=== PATIENT | male | born 1955 | race Caucasian/White ===

== ENCOUNTER → 2019-01-27 08:46 | Outpatient (CLI) | payer OTHER, SELFPAY ==
--- NOTE | 2019-01-27 08:49 | DI.RAD.S_ITS ---
PROCEDURE: XR PELVIS 1-2V INDICATIONS: history of hip dispalcement TECHNIQUE: Single frontal view of the pelvis acquired. COMPARISON: None. FINDINGS: Bones: No fractures or dislocations. No suspicious bony lesions. Soft tissues: Visualized bowel gas pattern is normal. No suspicious soft tissue calcifications. IMPRESSION: Only a mild degree of symmetric hip joint osteoarthritis is identified and no trauma is found. Dictated by: Michael Anna M.D. on 01/27/2019 at 11:15 Approved by: Michael Anna M.D. on 01/27/2019 at 11:16
[2019-01-27 09:39] LABS: Add Manual Diff / Slide Review NO; Basophils Absolute Auto 100 /uL (0-100); Basophils Percent Auto 0.7 % (0-2); Eosinophils Absolute Auto 200 /uL (0-450); Eosinophils Percent Auto 1.7 % (2-4); Hematocrit 47.1 % (41-53); Hemoglobin 16.5 g/dL (13.5-17.5); Lymphocytes Absolute Auto 1900 /uL (1100-4500); Lymphocytes Percent Auto 19.7 % (25-40); Mean Corpuscular Hemoglobin 31.7 PG (26-34); Mean Corpuscular Volume 90.8 fL (80-100); Monocytes Absolute Auto 900 /uL (0-900); Monocytes Percent Auto 9.4 % (3-14); Neutrophils Absolute Auto 6700 /uL (1500-7000); Neutrophils Percent Auto 68.5 % (50-75); Platelet Count 293 X10^3/uL (150-400); Red Blood Cell Count 5.19 X10^6/uL (4.5-5.9); Red Cell Distribution Width 13.6 % (11.6-14.8); White Blood Cell Count 9.8 X10^3/uL (4.5-11.0)
[2019-01-27 09:59] LABS: Alanine Aminotransferase 35 IU/L (21-72); Albumin 4.5 g/dL (3.5-5.0); Albumin Globulin Ratio 1.6 (1.0-2.8); Alkaline Phosphatase 105 U/L (38-126); Aspartate Aminotransferase 30 IU/L (17-59); BUN Creatinine Ratio 17.5 (6-22); Bilirubin Total 0.7 mg/dL (0.2-1.3); Blood Urea Nitrogen 14 mg/dL (9-20); Calcium 9.3 mg/dL (8.4-10.2); Carbon Dioxide 30 mmol/L (22-32); Chloride 97 mmol/L (98-107); Cholesterol 203 mg/dL (140-199); Estimated Glomerular Filt Rate > 60.0 mL/min (>60); Globulin 2.9 g/dL (1.7-4.1); Glucose 91 mg/dL (80-110); HDL Cholesterol 61 mg/dL (40-60); HEMOLYSIS < 15 (0-50); LDL Cholesterol Calculated 118 mg/dL (<100); Potassium 4.7 mmol/L (3.4-5.1); Sodium 136 mmol/L (137-145); Total Protein 7.4 g/dL (6.3-8.2); Triglycerides 122 mg/dL (35-150)
[2019-01-27 10:35] LABS: Thyroid Stimulating Hormone 2.63 uIU/mL (0.47-4.68)
== END ==
PROVIDERS: Visit Provider Nurse Practitioner
DX: Q65.2 Congenital dislocation of hip, unspecified (principal); Z13.220 Encounter for screening for lipoid disorders; Z13.29 Encounter for screening for other suspected endocrine disorder
CPT/HCPCS: 36415; 72170; 80053; 80061; 84443; 85025

== ENCOUNTER → 2019-04-28 09:14 | Outpatient (CLI) | payer OTHER, SELFPAY ==
--- NOTE | 2019-04-28 09:17 | DI.CT.S_ITS ---
PROCEDURE: CT HEAD/BRAIN WO/W CON INDICATIONS: numb hands, visual disturbances, dizzy, lack of balance TECHNIQUE: 4.5 mm thick angled axial sections acquired from the foramen magnum to the vertex both before and after the administration of intravenous contrast, with coronal and sagittal reformats. For radiation dose reduction, the following was used: automated exposure control, adjustment of mA and/or kV according to patient size. COMPARISON: None. FINDINGS: Image quality: Excellent. CSF spaces: Basal cisterns are patent. No extra-axial fluid collections. Ventricles are symmetric in size and shape. Brain: No midline shift. No intracranial bleeds or masses. No abnormal intracranial enhancement. There is cerebral volume loss for age. There is periventricular white matter chronic small vessel ischemic change. There is intracranial internal carotid artery atherosclerosis. Skull and face: Calvarium and visualized facial bones appear intact, without suspicious lesions. Sinuses: Visualized sinuses and mastoids are clear. IMPRESSION: No acute intracranial process is seen. No masses or abnormal enhancement can be seen. Dictated by: Reji Ortiz M.D. on 04/28/2019 at 9:41 Approved by: Reji Ortiz M.D. on 04/28/2019 at 9:42
[2019-04-28 09:51] LABS: BUN Creatinine Ratio 16.3 (6-22); Blood Urea Nitrogen 13 mg/dL (9-20); Estimated Glomerular Filt Rate > 60.0 mL/min (>60)
== END ==
PROVIDERS: Visit Provider Nurse Practitioner
DX: H53.9 Unspecified visual disturbance (principal); R20.0 Anesthesia of skin; Z87.820 Personal history of traumatic brain injury; Z01.812 Encounter for preprocedural laboratory examination; R42 Dizziness and giddiness
CPT/HCPCS: 36415; 70470; 82565; 84520; Q9967

== ENCOUNTER → 2019-05-05 09:44 | Outpatient (CLI) | payer OTHER, SELFPAY ==
--- NOTE | 2019-05-05 09:46 | DI.MRI.S_ITS ---
PROCEDURE: MR CERVICAL SPINE WO CON INDICATIONS: left foot drop, arms tingling TECHNIQUE: Noncontrast sagittal T1 spin echo and T2 fast spin echo, sagittal STIR, foraminal oblique sagittal T2 fast spin echo, and axial gradient echo or T2 fast spin echo through the cervical spine. COMPARISON: [facility], CT, CT HEAD/BRAIN WO/W CON, 04/28/2019, 10:09. FINDINGS: Image quality: Excellent. Alignment and Curvature: There is normal bony alignment. Bone Marrow: Marrow demonstrates normal overall signal. Spinal Cord: Mildly increased degenerative signal can be seen within the cervical spine at the C4-C5 level, which is best seen on series 5 image 10. Visualized spinal cord has normal size. No cerebellar tonsillar herniation. Paraspinous Soft Tissues: No paravertebral masses. Prevertebral soft tissues are normal in thickness. C2-C3: A mild degree of generalized disc osteophyte complex is seen. A mild degree of generalized disc osteophyte complex is seen. There is mild to moderate left-sided and no right-sided neural foraminal narrowing seen. No significant central canal narrowing is seen. C3-C4: Moderate loss of disc height is seen. Loss of disc signal is seen. Moderate disc osteophyte complex is seen, which is eccentric to the right. There is mild to moderate facet hypertrophy seen. Moderate to severe bilateral neural foraminal narrowing is seen at this level. Moderate central canal narrowing is seen. C4-C5: Moderate loss of disc height is seen. Loss of disc signal is seen. Moderate to prominent disc osteophyte complex is seen, with a central disc osteophyte protrusion. There is moderate right-sided and mild left-sided facet hypertrophy seen. There is moderate to severe bilateral neural foraminal narrowing seen, right worse than left. At least moderate central canal narrowing is seen, with mass effect upon the ventral spinal cord. C5-C6: The disc height is well-preserved. Loss of disc signal is seen at this level. Mild to moderate disc osteophyte complex is seen, which is eccentric to the right. There is mild to moderate right-sided facet hypertrophy seen. There is moderate bilateral neural foraminal narrowing seen at this level. Moderate central canal narrowing is seen, with minimal mass effect upon the ventral spinal cord. C6-C7: The disc height is well-preserved. Loss of disc signal is seen at this level. Moderate generalized disc osteophyte complex is seen. There is at least moderate bilateral neural foraminal narrowing seen, right worse than left. Moderate central canal narrowing is seen, with mild associated mass effect upon the ventral spinal cord. C7-T1: The disc height is well-preserved. Loss of disc signal is seen at this level. A mild degree of generalized disc osteophyte complex is seen. Moderate to severe bilateral neural foraminal narrowing is seen, right worse than left. Mild central canal narrowing is seen. IMPRESSION: Multiple levels of cervical spine degenerative change are seen, which are most prominent at the C4-C5 level. At this level, there is moderate to severe central canal narrowing, with associated increased abnormal T2-weighted signal within the spinal cord itself. 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 Dictated by: Reji Ortiz M.D. on 05/05/2019 at 11:53 Approved by: Reji Ortiz M.D. on 05/05/2019 at 12:01
== END ==
PROVIDERS: PCP Nurse Practitioner; Visit Provider Nurse Practitioner
DX: M21.372 Foot drop, left foot (principal); R20.2 Paresthesia of skin; M47.12 Other spondylosis with myelopathy, cervical region; M48.02 Spinal stenosis, cervical region; M79.601 Pain in right arm; M79.602 Pain in left arm
CPT/HCPCS: 72141

== ENCOUNTER → 2019-10-14 10:21 | Outpatient (CLI) | payer OTHER, SELFPAY ==
[2019-10-14 11:39] LABS: Alanine Aminotransferase 38 IU/L (<50); Albumin 4.8 g/dL (3.5-5.0); Albumin Globulin Ratio 1.7 (1.0-2.8); Alkaline Phosphatase 100 U/L (38-126); Aspartate Aminotransferase 35 IU/L (17-59); Bilirubin Total 0.5 mg/dL (0.2-1.3); Bilirubin Unconjugated 0.4 mg/dL (0.0-1.1); Cholesterol 202 mg/dL (140-199); Globulin 2.8 g/dL (1.7-4.1); HDL Cholesterol 80 mg/dL (40-60); HEMOLYSIS < 15 (0-50); LDL Cholesterol Calculated 106 mg/dL (<100); Total Protein 7.6 g/dL (6.3-8.2); Triglycerides 82 mg/dL (35-150)
== END ==
PROVIDERS: PCP Nurse Practitioner; Referring Provider Nurse Practitioner; Visit Provider Nurse Practitioner
DX: E78.00 Pure hypercholesterolemia, unspecified (principal)
CPT/HCPCS: 36415; 80061; 80076

== ENCOUNTER → 2020-08-09 10:24 | Outpatient (CLI) | payer OTHER, SELFPAY ==
[2020-08-09 11:29] LABS: Add Manual Diff / Slide Review NO; Basophils Absolute Auto 100 /uL (0-100); Basophils Percent Auto 0.8 % (0-2); Eosinophils Absolute Auto 100 /uL (0-450); Eosinophils Percent Auto 0.6 % (2-4); Hematocrit 44.8 % (41-53); Hemoglobin 15.5 g/dL (13.5-17.5); Lymphocytes Absolute Auto 1800 /uL (1100-4500); Lymphocytes Percent Auto 18.1 % (25-40); Mean Corpuscular HGB Conc 34.5 % (30-36); Mean Corpuscular Volume 89.7 fL (80-100); Monocytes Absolute Auto 800 /uL (0-900); Monocytes Percent Auto 8.5 % (3-14); Neutrophils Absolute Auto 7000 /uL (1500-7000); Platelet Count 338 X10^3/uL (150-400); Red Blood Cell Count 4.99 X10^6/uL (4.5-5.9); Red Cell Distribution Width 13.6 % (11.6-14.8); White Blood Cell Count 9.7 X10^3/uL (4.5-11.0)
[2020-08-09 11:48] LABS: Alanine Aminotransferase 24 IU/L (<50); Albumin 4.5 g/dL (3.5-5.0); Albumin Globulin Ratio 1.7 (1.0-2.8); Alkaline Phosphatase 90 U/L (38-126); Aspartate Aminotransferase 29 IU/L (17-59); BUN Creatinine Ratio 19.1 (6-22); Bilirubin Total 0.9 mg/dL (0.2-1.3); Blood Urea Nitrogen 13 mg/dL (9-20); Calcium 9.8 mg/dL (8.4-10.2); Carbon Dioxide 29 mmol/L (22-32); Chloride 90 mmol/L (98-107); Cholesterol 171 mg/dL (140-199); Estimated Glomerular Filt Rate > 60.0 mL/min (>60); Globulin 2.7 g/dL (1.7-4.1); Glucose 104 mg/dL (80-110); HDL Cholesterol 83 mg/dL (40-60); HEMOLYSIS < 15 (0-50); LDL Cholesterol Calculated 76 mg/dL (<100); Potassium 3.9 mmol/L (3.4-5.1); Sodium 127 mmol/L (137-145); Total Protein 7.2 g/dL (6.3-8.2); Triglycerides 62 mg/dL (35-150)
[2020-08-09 12:04] LABS: Free T3, Triiodothyronine Free 4.03 pg/mL (2.77-5.27); Free T4, Direct Thyroxine 1.57 ng/dL (0.78-2.19)
[2020-08-09 12:17] LABS: Thyroid Stimulating Hormone 1.68 uIU/mL (0.47-4.68)
[2020-08-09 12:23] LABS: Prostate Specific Antigen 1.08 ng/mL (0.10-4.00)
[2020-08-10 16:58] LABS: Hep C Virus Ab w/Reflex Quant NEGATIVE s/c (NEGATIVE)
== END ==
PROVIDERS: PCP Nurse Practitioner; Referring Provider Nurse Practitioner; Visit Provider Nurse Practitioner
DX: Z00.00 Encounter for general adult medical examination without abnormal findings (principal); I10 Essential (primary) hypertension; Z12.5 Encounter for screening for malignant neoplasm of prostate; Z79.899 Other long term (current) drug therapy; Z11.59 Encounter for screening for other viral diseases; Z91.89 Other specified personal risk factors, not elsewhere classified
CPT/HCPCS: 36415; 80053; 80061; 84153; 84439; 84443; 84481; 85025; 86803

== ENCOUNTER → 2020-08-30 10:48 | Outpatient (CLI) | payer OTHER, SELFPAY ==
--- NOTE | 2020-08-30 10:50 | DI.RAD.S_ITS ---
P is ROCEDURE: XR LUMBAR SPINE 2-3V INDICATIONS: low back pain TECHNIQUE: 3 views of the lumbar spine were acquired. COMPARISON: None. FINDINGS: Bones: No fracture. Multilevel degenerative endplate sclerosis and spurring. Diffuse facet arthropathy. Grade 1 retrolisthesis of L1 on L2, L2 on L3 , and L4 on L5. Grade 1 anterolisthesis of L3 on L4. Moderate narrowing of the lumbar spaces diffusely, although severe disc space narrowing at L5-S1. Mild dextrocurvature Soft tissues: Overlying bowel gas pattern is normal. No suspicious soft tissue calcifications. IMPRESSION: Mild dextrocurvature Multilevel lumbar spondylosis and facet arthropathy as above Multilevel spondylolisthesis as above. Dictated by: Jono Maxwell M.D. on 08/30/2020 at 14:20 Approved by: Jono Maxwell M.D. on 08/30/2020 at 14:22
[2020-08-30 14:19] LABS: BUN Creatinine Ratio 24.2 (6-22); Blood Urea Nitrogen 16 mg/dL (9-20); Calcium 9.2 mg/dL (8.4-10.2); Carbon Dioxide 30 mmol/L (22-32); Chloride 92 mmol/L (98-107); Estimated Glomerular Filt Rate > 60.0 mL/min (>60); Glucose 83 mg/dL (80-110); HEMOLYSIS < 15 (0-50); Magnesium 2.1 mg/dL (1.6-2.3); Potassium 4.5 mmol/L (3.4-5.1); Sodium 127 mmol/L (137-145)
== END ==
PROVIDERS: PCP Nurse Practitioner; Referring Provider Nurse Practitioner; Visit Provider Nurse Practitioner
DX: G89.29 Other chronic pain (principal); M25.552 Pain in left hip; M51.36 Other intervertebral disc degeneration, lumbar region; E87.1 Hypo-osmolality and hyponatremia; I10 Essential (primary) hypertension; Z79.899 Other long term (current) drug therapy
CPT/HCPCS: 36415; 72100; 80048; 83735

== ENCOUNTER → 2020-09-27 11:37 | Outpatient (CLI) | payer OTHER, SELFPAY ==
--- NOTE | 2020-09-27 11:41 | DI.MRI.S_ITS ---
PROCEDURE: MR LUMBAR SPINE WO CON INDICATIONS: Lower extremity weakness TECHNIQUE: Noncontrast sagittal T1 spin echo and T2 fast echo, sagittal STIR, axial T1 and T2 fast spin echo through the lumbar spine. In cases with scoliosis, additional coronal T2 fast spin echo may be performed. COMPARISON: [facility], CR, XR CERVICAL SPINE 4V OR 5V, 09/27/2020, 12:50. [facility], MR, MR CERVICAL SPINE WO CON, 09/27/2020, 12:03. [facility], CR, XR LUMBAR SPINE 2-3V, 08/30/2020, 11:13. FINDINGS: Image quality: This examination is limited by involuntary motion artifact. Alignment and Curvature: Mild dextroconvex scoliotic curvature is noted. There is minimal retrolisthesis seen at L1-L2, L2-L3, and L4-L5. Minimal anterolisthesis is seen at L5-S1. Bone Marrow: Marrow is of normal overall signal. No acute vertebral body compression fractures. Spinal Cord: Conus medullaris terminates at the T12 level. Visualized cord demonstrates normal signal and size. Paraspinous Soft Tissues: No paravertebral masses. T12-L1: Normal appearance. L1-L2: Mild loss of disc height is seen. Loss of disc signal is seen. Mild to moderate facet hypertrophy is seen at this level. There is [id number] right-sided and moderate left-sided neural foraminal narrowing seen. No pneumothorax or pleural effusions are seen. The central airways are patent. L2-L3: Loss of disc signal is seen. Minimal to mild loss of disc height is seen at this level. Moderate disc bulge is seen, which is eccentric to the left. At least moderate facet hypertrophy can be seen at this level. Moderate to severe bilateral neural foraminal narrowing is seen, left worse than right. There is a degree of compression seen upon the exiting nerve roots. At least moderate central canal narrowing is seen, as on series 5, image 15. L3-L4: Moderate to severe loss of disc height and disc signal can be seen. 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 Moderate generalized disc bulge is seen. Mild facet joint hypertrophy is seen. Moderate bilateral neural foraminal narrowing is seen. Mild central canal narrowing is seen. L4-L5: Moderate loss of disc height is seen. Loss of disc signal is seen. Reactive marrow endplate changes are seen which are hypointense on T1-weighted imaging and hyperintense on T2 weighted imaging, which is most consistent with edema (Modic type I changes). Moderate disc bulge is seen, which is eccentric to the right. There is a central disc protrusion seen. There is also a right lateral recess disc extrusion seen. At least moderate facet hypertrophy can be seen at this level. There is moderate to severe bilateral neural foraminal narrowing seen, right worse than left. A degree of compression can be seen upon the exiting nerve roots, right worse than left. Moderate to severe central canal narrowing is seen. L5-S1: At least moderate loss of disc height and disc signal can be seen. Reactive marrow endplate changes are seen, which demonstrate mixed T1 weighted and T2-weighted signal, and are attributed to a combination of edema and fatty metaplasia (Modic type I and Modic type II changes). At least moderate disc bulge is seen. There is a central/right disc extrusion, with superior migration of the disc material. Moderate to prominent facet hypertrophy can be seen at this level. Moderate to severe bilateral neural foraminal narrowing can be seen, right worse than left. There is a degree of compression seen upon the exiting nerve roots. Moderate to severe central canal narrowing is seen. IMPRESSION: Multiple levels of lumbar spine degenerative change are seen, which are most prominent inferiorly. Right-sided disc extrusions are seen at the L4-L5 and L5-S1 levels. Moderate to severe bilateral neural foraminal narrowing can be seen at L4-L5 and L5-S1, with associated exiting nerve root compression. Dictated by: Reji Ortiz M.D. on 09/27/2020 at 12:28 Approved by: Reji Ortiz M.D. on 09/27/2020 at 12:34
--- NOTE | 2020-09-27 11:41 | DI.MRI.S_ITS ---
PROCEDURE: MR CERVICAL SPINE WO CON INDICATIONS: Cervical myeloradiculopathy TECHNIQUE: Noncontrast sagittal T1 spin echo and T2 fast spin echo, sagittal STIR, foraminal oblique sagittal T2 fast spin echo, and axial gradient echo or T2 fast spin echo through the cervical spine. COMPARISON: [facility], MR, MR CERVICAL SPINE WO CON, 05/05/2019, 10:32. [facility], CR, XR CERVICAL SPINE 4V OR 5V, 09/27/2020, 12:50. [facility], MR, MR LUMBAR SPINE WO CON, 09/27/2020, 12:31. FINDINGS: Image quality: This examination is limited by involuntary motion artifact. Alignment and Curvature: There is normal bony alignment. Bone Marrow: Marrow demonstrates normal overall signal. Spinal Cord: Visualized spinal cord has normal size and signal. No cerebellar tonsillar herniation. Paraspinous Soft Tissues: No paravertebral masses. Prevertebral soft tissues are normal in thickness. C2-C3: Mild loss of disc height is seen. Loss of disc signal is seen. Mild to moderate disc osteophyte complex is seen. There is mild right-sided and at least moderate left-sided facet hypertrophy seen. There is at least moderate left-sided and no significant right-sided neural foraminal narrowing seen. No significant central canal narrowing is seen. No significant change from the prior. C3-C4: Moderate loss of disc height is seen. Loss of disc signal is seen. Moderate disc osteophyte complex is seen, which is eccentric to the right. At least moderate facet hypertrophy is seen at this level. There is moderate to severe bilateral neural foraminal narrowing seen. Moderate central canal narrowing is seen. Stable from the prior study. C4-C5: Interval postoperative changes are seen anteriorly, with anterior fusion plate with a disc spacer. Mild to moderate disc osteophyte complex is seen. Moderate facet hypertrophy is seen, right worse than left. There is moderate to severe bilateral neural foraminal narrowing seen, right worse than left. Mild central canal narrowing is seen. The degree of central canal narrowing is improved compared to the prior, preoperative MRI examination. C5-C6: The disc height is well-preserved. Loss of disc signal is seen at this level. Mild to moderate disc osteophyte complex is seen. At least moderate facet hypertrophy is seen, right worse than left. There is at least moderate bilateral neural foraminal narrowing seen. Moderate central canal narrowing is seen. There is associated mass effect upon the ventral spinal cord. When comparison is made with the prior examination, these findings are similar. C6-C7: The disc height is well-preserved. Loss of disc signal is seen at this level. Mild to moderate disc osteophyte complex is seen. There is [id number] right-sided and mild left-sided facet hypertrophy seen. There is at least moderate bilateral neural foraminal narrowing seen, right worse than left. Moderate central canal narrowing can be seen at this level. There is minimal associated mass effect upon the ventral spinal cord. No significant change from the prior. C7-T1: The disc height is well-preserved. Loss of disc signal is seen at this level. Mild to moderate disc osteophyte complex is seen. Mild facet joint hypertrophy is seen. At least moderate bilateral neural foraminal narrowing can be seen. Mild central canal narrowing is seen. Stable from the prior study. IMPRESSION: Interval postoperative change at the C3-C4 level, with improvement in the degree of central canal narrowing at this level. A a Dictated by: Reji Ortiz M.D. on 09/27/2020 at 12:22 Approved by: Reji Ortiz M.D. on 09/27/2020 at 12:27
--- NOTE | 2020-09-27 11:41 | DI.RAD.S_ITS ---
PROCEDURE: XR CERVICAL SPINE 4V OR 5V INDICATIONS: Cervical myeloradiculopathy TECHNIQUE: 5 views of the cervical spine were acquired. COMPARISON: [facility], MR, MR CERVICAL SPINE WO CON, 09/27/2020, 12:03. FINDINGS: Bones: No fractures or dislocations to the T1 level. No suspicious bony lesions. Prior ACDF C4-C5 with fixation plate, screws and intervertebral disc spacer in expected unchanged positions. Grade 1 retrolisthesis C3-C4 where there is moderate disc degeneration. Oblique views demonstrating mild multilevel mid and lower cervical spine bilateral neural foraminal narrowing. Soft tissues: Prevertebral soft tissues are normal in thickness. IMPRESSION: 1. Prior ACDF C4-C5. 2. Multilevel spondylosis. Dictated by: Indra HINSON Interpreted: Teofilo Valera MD on 09/27/2020 at 13:05 Approved by: Teofilo Valera M.D. on 09/27/2020 at 14:32
== END ==
PROVIDERS: PCP Nurse Practitioner; Referring Provider Physical Medicine & Rehabilitation; Visit Provider Physical Medicine & Rehabilitation
DX: M47.26 Other spondylosis with radiculopathy, lumbar region (principal); M51.16 Intervertebral disc disorders with radiculopathy, lumbar region; M51.17 Intervertebral disc disorders with radiculopathy, lumbosacral region; M48.061 Spinal stenosis, lumbar region without neurogenic claudication; M48.07 Spinal stenosis, lumbosacral region; M54.12 Radiculopathy, cervical region; M48.02 Spinal stenosis, cervical region; G99.2 Myelopathy in diseases classified elsewhere; R29.898 Other symptoms and signs involving the musculoskeletal system; G95.9 Disease of spinal cord, unspecified; R26.81 Unsteadiness on feet; Z98.1 Arthrodesis status
CPT/HCPCS: 72110; 72141; 72148

== ENCOUNTER → 2020-10-17 12:34 | Outpatient (CLI) | payer OTHER, SELFPAY ==
[2020-10-17 14:56] LABS: COVID19 -Nasal RAPID Negative (Negative)
== END ==
PROVIDERS: PCP Nurse Practitioner; Visit Provider Physical Medicine & Rehabilitation
DX: Z20.822 Contact with and (suspected) exposure to COVID-19 (principal)
CPT/HCPCS: 87635; C9803

== ENCOUNTER 2020-10-19 09:06 | Outpatient (CLI) | payer OTHER, SELFPAY ==
[2020-10-19] VITALS (7 sets, daily range): BP systolic 133–166; BP diastolic 63–76; PULSE 72–77; RESP 13–19; O2SAT 93–98
--- NOTE | 2020-10-19 09:07 | DI.RAD.S_ITS ---
PROCEDURE: PAIN L INTERLAMINAR/CAUDAL INJ INDICATIONS: SPONDYLOSIS COMPARISON: [facility], CR, XR LUMBAR SPINE 2-3V, 08/30/2020, 11:13. [facility], MR, MR LUMBAR SPINE WO CON, 09/27/2020, 12:31. FINDINGS: Fluoroscopic spot filming was performed to verify placement of a spinal needle at the L4-L5 level, as labeled on the films. Appropriate location of the needle tip was confirmed by injection of iodinated contrast. IMPRESSION: Intraprocedural examination within normal limits. Dictated by: Reji Ortiz M.D. on 10/19/2020 at 12:27 Approved by: Reji Ortiz M.D. on 10/19/2020 at 12:28
[2020-10-19] MEDS: MIDAZOLAM 5 MG/5 ML VIAL IV (09:40)
[2020-10-19] MEDS: fentaNYL 100 MCG/2 ML INJ 50 MCG IV (09:40)
[2020-10-19] MEDS: IOPAMIDOL 15 ML VIAL 3 ML INJ (09:46)
[2020-10-19] MEDS: DEXAMETHASONE 10 MG/ML VIAL 20 MG INJ (09:47)
[2020-10-19] MEDS: BUPIVACAINE 0.25% (PF) VIAL 2 ML INJ (09:47)
[2020-10-19] MEDS: BETAMETHASONE 30 MG/5 ML MDV 6 MG INJ (09:47)
--- NOTE | 2020-10-19 09:52 | P.PCN_ITS ---
Date/Time/Diagnoses Date of procedure: 10/19/20 Time of procedure: 09:52 Pre-procedure diagnosis: 1. HNP WITH RADICULAR FEATURES, 2. MULTILEVEL CENTRAL STENOSIS, Post-procedure diagnosis: same Procedure Notes Procedure: 1. FLUOROSCOPICALLY GUIDED CONTRAST CONTROLLED INTERLAMINAR EPIDURAL STEROID INJECTION -L4/5 Indications: Pal is referred by JUANA Antonio for treatment of Bilateral Foraminal Stenosis R>L LE symptoms. Physician: Tristan Degroot Total Fluoroscopy time (seconds): 5 Total sedation minutes: 9 Complications: none Procedure in detail & Post-procedure care: FINDINGS Multilevel Central Spinal Stenosis with Nerve Root Compression DESCRIPTION OF PROCEDURE Fluoroscopically guided, contrast-controlled L4/5 translaminar epidural steroid injection. Following review of allergy and review of potential side effects and complications, including, but not necessarily limited to, infection, allergic reaction, local tissue breakdown, temporary as well as permanent nerve injury, paralysis, stroke and possible , the patient indicated that the patient understood and agreed to proceed. An informed consent document was signed by the patient, witnessed by a nurse, and placed in the patient's chart. Additionally, other treatment options including modalities, medications, and physical therapy were reviewed with the patient. After review of previous anaesthesic history and IV conscious sedation the patient was deemed safe to proceed with today?s procedure with IV conscious sedation as ASA class II designation. Safety time-out was performed to confirm patient ID, procedure to be performed and site of procedure. IV sedation was accomplished with a combination of 2mg of Versed and 50mcg of Fentanyl was administered by the RN after DO order, titrated to patient comfort during the course of the procedure while the patient remained responsive to all verbal commands In the prone position, following sterile prep and drape of the lumbar region, the L4/5 translaminar space was identified fluoroscopically. The skin was anesthetized via a 25-gauge, 1.5inch needle with 1% lidocaine solution. At this point, a 22-gauge short bevel spinal needle was atraumatically introduced and advanced under fluoroscopic guidance into the region of the L4/5 translaminar space. Depth was confirmed on lateral view. Radiological data, including multiple fluoroscopic views of the lumbar spine, reveal a spinal needle at the L4/5 translaminar space. Lateral views then show placement of the needle in the epidural space. Subsequent views show contrast material flowing superiorly and inferiorly in the epidural space. No vascular or intrathecal uptake is observed. At this point, using loss of resistance technique with saline and air, the epidural space was entered. This was confirmed following negative aspiration with injection of approximately 1.5cc of Isovue 200, showing excellent epidural flow without vascular or intrathecal uptake. At this point, 1cc of 1% lidocaine solution combined with 3cc or 20mg of dexamethasone and 6mg betamethasone was injected without incident. The patient tolerated the procedure well without signs or symptoms of compli cations prior to transfer to the recovery area continued monitoring without incident. The patient was then transferred to the recovery area where they were observed for an appropriate period of time after the injection. The patient reported a VAS score of 6 prior to the procedure and a post- procedure VAS of 0. POST OP INSTRUCTIONS The patient was provided a Pain Log to continue to record their response to the target-specific procedure prior to follow-up visit with their referring physician. Additionally, specific post-injection care instructions and a contact number to our office were provided if concerns arise regarding possible complications associated with the procedure are suspected.
== END 2020-10-19 10:15 | disposition home or self-care (01) ==
PROVIDERS: PCP Nurse Practitioner; Referring Provider Physical Medicine & Rehabilitation; Visit Provider Physical Medicine & Rehabilitation
DX: M51.16 Intervertebral disc disorders with radiculopathy, lumbar region (principal); M48.061 Spinal stenosis, lumbar region without neurogenic claudication
CPT/HCPCS: 62323; J0702; J1100; J2250; J3010

== ENCOUNTER → 2020-11-20 15:23 | Outpatient (CLI) | payer OTHER, SELFPAY ==
[2020-11-20 18:12] LABS: COVID19 -Nasal RAPID Negative (Negative)
== END ==
PROVIDERS: PCP Nurse Practitioner; Visit Provider Physical Medicine & Rehabilitation
DX: Z20.822 Contact with and (suspected) exposure to COVID-19 (principal)
CPT/HCPCS: 87635; C9803

== ENCOUNTER 2020-11-21 15:14 | Outpatient (CLI) | payer OTHER, SELFPAY ==
[2020-11-21] VITALS (10 sets, daily range): BP systolic 154–208; BP diastolic 77–100; PULSE 65–73; RESP 16–22; TEMP 36.5–36.6; O2SAT 96–99
--- NOTE | 2020-11-21 15:16 | DI.RAD.S_ITS ---
PROCEDURE: PAIN L/S TRANSFORAM INJECT DANY COMPARISON: [facility], XA, PAIN L INTERLAMINAR/CAUDAL INJ, 10/19/2020, 9:43. INDICATIONS: SPONDYLOSIS FINDINGS: Fluoroscopic spot filming was performed to verify placement of spinal needles at the L4-L5 level, as labeled on the films. Appropriate location of the needle tips was confirmed by injection of iodinated contrast. IMPRESSION: Intraprocedural examination within normal limits. Dictated by: Reji Ortiz M.D. on 11/21/2020 at 15:28 Approved by: Reji Ortiz M.D. on 11/21/2020 at 15:29
[2020-11-21] MEDS: MIDAZOLAM 5 MG/5 ML VIAL IV (15:48)
[2020-11-21] MEDS: fentaNYL 100 MCG/2 ML INJ 50 MCG IV (15:48)
[2020-11-21] MEDS: DEXAMETHASONE 10 MG/ML VIAL 20 MG INJ (15:56)
[2020-11-21] MEDS: BUPIVACAINE 0.25% (PF) VIAL 2 ML INJ (15:56)
[2020-11-21] MEDS: methylPREDNISolone acetate 80 MG/ML VIAL INJ (15:56)
[2020-11-21] MEDS: IOPAMIDOL 15 ML VIAL 3 ML INJ (15:56)
[2020-11-21] MEDS: methylPREDNISolone acet DEPO 40 MG/ML VIAL 80 MG INJ (15:58)
--- NOTE | 2020-11-21 16:10 | P.PCN_ITS ---
Date/Time/Diagnoses Date of procedure: 11/21/20 Time of procedure: 16:11 Pre-procedure diagnosis: 1. FORAMINAL STENOSIS WITH LE SYMPTOMS Post-procedure diagnosis: same Procedure Notes Procedure: 1. FLUOROSCOPICALLY GUIDED CONTRAST CONTROLLED TRANSFORAMINAL EPIDURAL STEROID INJECTION - BILATERAL L4/5 TFESI Indications: Pal is referred by JUANA Antonio for treatment of Foraminal Stenosis with bilateral LE Symptoms Physician: Tristan Degroot Total Fluoroscopy time (seconds): 15 Total sedation minutes: 15 Complications: none Procedure in detail & Post-procedure care: FINDINGS Foraminal Nerve Root Compression secondary to disc disease and facet hypertrophy DESCRIPTION OF PROCEDURE Following review of allergy and review of potential side effects and complications, including, but not necessarily limited to, infection, allergic reaction, local tissue breakdown, stroke, temporary or permanent nerve injury, paralysis, and possible , the patient indicated that the patient understood and agreed to proceed. An informed consent document was signed by the patient, witnessed by a nurse, and placed in the patient's chart. Additionally, other treatment options including medications, modalities, and physical therapy were reviewed with the patient. After review of previous anaesthesic history and IV conscious sedation the patient was deemed safe to proceed with today?s procedure with IV conscious sedation as ASA class II designation. Safety time-out was performed to confirm patient ID, procedure to be performed and site of procedure. IV sedation was accomplished with a combination of 3mg of Versed and 50mcg of Fentanyl was administered by the RN after DO order, titrated to patient comfort during the course of the procedure while the patient remained responsive to all verbal commands In the prone position following sterile prep and drape of the lumbar region, the right L4/5 posterior neuroforamen was identified fluoroscopically. The skin was anesthetized via a 25-gauge 1.5-inch needle with 1% lidocaine solution. At this point, a 25-gauge 3.5-inch spinal needle was atraumatically introduced and advanced under fluoroscopic guidance through the posterior right 4/5 neuroforamen to approximately the anterior aspect of the canal. Depth was confirmed on lateral view. Following negative aspiration, injection of approximately 1.5cc of Isovue 200 under live fluoroscopy in the AP view confirmed excellent flow along the nerve root, into the epidural space without vascular or intrathecal uptake observed Radiological data, including multiple fluoroscopic views of the lumbosacral spine, reveal a spinal needle at the right L4/5 posterior neuroforamen. Subsequent views show flow of contrast material flowing superiorly and inferiorly along the nerve root confirming epidural flow. Subsequently, a test dose of 1.5cc of 1% lidocaine solution was administered and patient was observed for two minutes for signs or symptoms of complications, including abdominal pain, shortness of breath, bilateral upper or lower extremity weakness, nausea and vomiting, prior to steroid injection. At this point, a total of 2cc or 10mg of dexamethasone and 80mg depo medrol was injected without incident. Attention was then refocused to the left L4/5 level where the identical procedure was replicated. The procedure tolerated the procedure well without signs or symptoms of co mplications prior to transfer to the recovery area continued monitoring without incident. The patient was then transferred to the recovery area where they were observed for an appropriate time after the injection. The patient reported a VAS score of 7 prior to the procedure and a post-procedure VAS of 0. POST OP INSTRUCTIONS The patient was provided a Pain Log to continue to record their response to the target-specific procedure prior to follow-up visit with their referring physician. Additionally, specific post-injection care instructions and a contact number to our office were provided if concerns arise regarding possible complications associated with the procedure are suspected.
== END 2020-11-21 16:40 | disposition home or self-care (01) ==
PROVIDERS: PCP Nurse Practitioner; Referring Provider Physical Medicine & Rehabilitation; Visit Provider Physical Medicine & Rehabilitation
DX: M48.061 Spinal stenosis, lumbar region without neurogenic claudication (principal); M51.16 Intervertebral disc disorders with radiculopathy, lumbar region
CPT/HCPCS: 64483; 99152; J0702; J1030; J1040; J1100; J2250; J3010

== ENCOUNTER → 2020-12-07 12:39 | Outpatient (CLI) | payer OTHER, SELFPAY ==
[2020-12-07] MEDS: COVID-19 VACC, Ad26(JANSSEN)/PF 0.5 ML IM (12:53)
== END ==
PROVIDERS: PCP Nurse Practitioner; Visit Provider Internal Medicine
DX: Z23 Encounter for immunization (principal)
CPT/HCPCS: 0031A; 91303

== ENCOUNTER → 2021-04-10 07:33 | Outpatient (CLI) | payer OTHER, SELFPAY ==
[2021-04-10 19:35] LABS: COVID19 -Nasal RAPID Negative (Negative)
== END ==
PROVIDERS: PCP Nurse Practitioner; Visit Provider Physical Medicine & Rehabilitation
DX: Z20.822 Contact with and (suspected) exposure to COVID-19 (principal)
CPT/HCPCS: 87635; C9803

== ENCOUNTER 2021-04-12 13:53 | Outpatient (CLI) | payer OTHER, SELFPAY ==
[2021-04-12] VITALS (9 sets, daily range): BP systolic 135–232; BP diastolic 89–112; PULSE 64–73; RESP 14–24; TEMP 36.6; O2SAT 96–98
--- NOTE | 2021-04-12 13:54 | DI.RAD.S_ITS ---
PROCEDURE: PAIN L/S TRANSFORAM INJECT DANY COMPARISON: [facility], , PAIN L/S TRANSFORAM INJECT DANY, 11/21/2020, 15:57. INDICATIONS: SPONDYLOSIS FINDINGS: Fluoroscopic spot filming was performed to verify placement of spinal needles on both sides at the L2-L3 level, as labeled on the films. Appropriate location of the needle TIPS was confirmed by injection of iodinated contrast. IMPRESSION: Intraprocedural examination within normal limits. Dictated by: Reji Ortiz M.D. on 04/12/2021 at 15:06 Approved by: Reji Ortiz M.D. on 04/12/2021 at 15:06
[2021-04-12] MEDS: fentaNYL 100 MCG/2 ML INJ 50 MCG IV (14:48)
[2021-04-12] MEDS: MIDAZOLAM 5 MG/5 ML VIAL IV (14:48)
[2021-04-12] MEDS: IOPAMIDOL 15 ML VIAL 3 ML INJ (14:52)
[2021-04-12] MEDS: BUPIVACAINE 0.25% (PF) VIAL 2 ML INJ (14:52)
[2021-04-12] MEDS: BETAMETHASONE 30 MG/5 ML MDV 12 MG INJ (14:52)
[2021-04-12] MEDS: DEXAMETHASONE 10 MG/ML VIAL 20 MG INJ (14:53)
--- NOTE | 2021-04-12 15:06 | PM.PROC.IR.1 ---
Date/Time/Diagnoses Date of procedure: 04/12/21 Time of procedure: 15:06 Pre-procedure diagnosis: 1. FORAMINAL STENOSIS WITH LE SYMPTOMS Post-procedure diagnosis: same Procedure Notes Procedure: 1. FLUOROSCOPICALLY GUIDED CONTRAST CONTROLLED TRANSFORAMINAL EPIDURAL STEROID INJECTION - BILATERAL L2/3 TFESI Indications: Pal is referred by JUANA Antonio for treatment of Foraminal Stenosis with bilateral LE Symptoms Physician: Tristan Degroot Total Fluoroscopy time (seconds): 12 Total sedation minutes: 12 Complications: none Procedure in detail & Post-procedure care: FINDINGS Foraminal Nerve Root Compression secondary to disc disease and facet hypertrophy DESCRIPTION OF PROCEDURE Following review of allergy and review of potential side effects and complications, including, but not necessarily limited to, infection, allergic reaction, local tissue breakdown, stroke, temporary or permanent nerve injury, paralysis, and possible , the patient indicated that the patient understood and agreed to proceed. An informed consent document was signed by the patient, witnessed by a nurse, and placed in the patient's chart. Additionally, other treatment options including medications, modalities, and physical therapy were reviewed with the patient. After review of previous anaesthesic history and IV conscious sedation the patient was deemed safe to proceed with today?s procedure with IV conscious sedation as ASA class II designation. Safety time-out was performed to confirm patient ID, procedure to be performed and site of procedure. IV sedation was accomplished with a combination of 3mg of Versed was administered by the RN after DO order, titrated to patient comfort during the course of the procedure while the patient remained responsive to all verbal commands In the prone position following sterile prep and drape of the lumbar region, the right L2/3 posterior neuroforamen was identified fluoroscopically. The skin was anesthetized via a 25-gauge 1.5-inch needle with 1% lidocaine solution. At this point, a 25-gauge 3.5-inch spinal needle was atraumatically introduced and advanced under fluoroscopic guidance through the posterior right L2/3 neuroforamen to approximately the anterior aspect of the canal. Depth was confirmed on lateral view. Following negative aspiration, injection of approximately 1.5cc of Isovue 200 under live fluoroscopy in the AP view confirmed excellent flow along the nerve root, into the epidural space without vascular or intrathecal uptake observed Radiological data, including multiple fluoroscopic views of the lumbosacral spine, reveal a spinal needle at the right L2/3 posterior neuroforamen. Subsequent views show flow of contrast material flowing superiorly and inferiorly along the nerve root confirming epidural flow. Subsequently, a test dose of 1.5cc of 1% lidocaine solution was administered and patient was observed for two minutes for signs or symptoms of complications, including abdominal pain, shortness of breath, bilateral upper or lower extremity weakness, nausea and vomiting, prior to steroid injection. At this point, a total of 3cc or 20mg of dexamethasone and 6mg betamethasone was injected without incident. Attention was then refocused to the left L2/3 level where the identical procedure was replicated. The procedure tolerated the procedure well without signs or symptoms of complications prior to transfer to the recovery area continued monitoring without incident. The patient was then transferred to the recovery area where they were observed for an appropriate time after the injection. The patient reported a VAS score of 7 prior to the procedure and a post-procedure VAS of 0. POST OP INSTRUCTIONS The patient was provided a Pain Log to continue to record their response to the target-specific procedure prior to follow-up visit with their referring physician. Additionally, specific post-injection care instructions and a contact number to our office were provided if concerns arise regarding possible complications associated with the procedure are suspected.
== END 2021-04-12 15:27 | disposition home or self-care (01) ==
LOC: RAD 13:54
PROVIDERS: PCP Nurse Practitioner; Referring Provider Physical Medicine & Rehabilitation; Visit Provider Physical Medicine & Rehabilitation
DX: M48.061 Spinal stenosis, lumbar region without neurogenic claudication (principal); M51.16 Intervertebral disc disorders with radiculopathy, lumbar region
CPT/HCPCS: 64483; 99152; J0702; J1100; J2250; J3010

== ENCOUNTER → 2021-05-24 11:47 | Outpatient (CLI) | payer OTHER, SELFPAY ==
--- NOTE | 2021-05-24 11:48 | DI.MRI.S_ITS ---
PROCEDURE: MR LUMBAR SPINE WO CON INDICATIONS: Lumbago with sciatica TECHNIQUE: Noncontrast sagittal T1 spin echo and T2 fast echo, sagittal STIR, axial T1 and T2 fast spin echo through the lumbar spine. In cases with scoliosis, additional coronal T2 fast spin echo may be performed. COMPARISON: [facility], MR, MR LUMBAR SPINE WO CON, 09/27/2020, 12:31. [facility], CR, XR LUMBAR SPINE WITH FLEXION EXTENSION 5 VIEWS, 05/14/2021, 14:05. FINDINGS: Image quality: Diagnostic, with note made of motion artifact. Alignment and Curvature: Mild dextroconvex scoliotic curvature is seen. There is minimal retrolisthesis seen at L1-L2 and L2-L3 and at L4-5. Minimal anterolisthesis is seen at L5-S1. Bone Marrow: Marrow is of normal overall signal. No acute vertebral body compression fractures. Spinal Cord: Conus medullaris terminates at the T12 level. Visualized cord demonstrates normal signal and size. Paraspinous Soft Tissues: No paravertebral masses. T12-L1: Normal appearance. L1-L2: The disc height is well-preserved. Loss of disc signal is seen at this level. Mild generalized disc bulge is seen. There is mild right-sided and moderate left-sided facet hypertrophy seen. There is moderate right-sided and moderate to severe left-sided neural foraminal narrowing seen. Mild central canal narrowing is seen. When comparison is made with the prior images, these findings are similar. L2-L3: Moderate loss of disc height is seen. Loss of disc signal is seen. At least moderate disc bulge is seen, which is eccentric to the left. There is a mild central/left disc extrusion, which appears new compared to the prior examination. At least moderate facet hypertrophy is seen at this level. There is moderate to severe bilateral neural foraminal narrowing seen, left worse than right. At least moderate central canal narrowing is seen. These imaging findings have progressed compared to the prior study. L3-L4: Moderate to severe loss of disc height and disc signal can be seen. 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 At least moderate disc bulge is seen at this level. Moderate to prominent facet hypertrophy is seen. There is mild right-sided and moderate left-sided neural foraminal narrowing seen. Mild to moderate central canal narrowing is seen. When comparison is made with the prior images, these findings are similar. L4-L5: Vhta-[id number] loss of disc height and disc signal can be seen. At least moderate disc bulge is seen, which is eccentric to the right. Reactive marrow endplate changes are seen, which demonstrate mixed T1 weighted and T2-weighted signal, and are attributed to a combination of edema and fatty metaplasia (Modic type I and Modic type II changes). At least moderate facet hypertrophy can be seen. There is severe right-sided and moderate to severe left-sided neural foraminal narrowing seen. There is a degree of compression seen upon the exiting nerve roots. Moderate to severe central canal narrowing is seen. The degrees of narrowing are similar to the prior examination. There is now a component of fatty metaplasia is seen involving the endplates. L5-S1: Moderate to severe loss of disc height and disc signal can be seen. At least moderate disc bulge is seen, with a central disc protrusion. There is a central/right disc extrusion, with superior migration the disc material. 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 Moderate to prominent facet hypertrophy can be seen at this level. There is moderate to severe bilateral neural foraminal narrowing seen, left worse than right. There is a degree of compression seen upon the exiting nerve roots. Moderate central canal narrowing is seen. Previously seen endplate edema is decreased compared to the prior examination. Otherwise, the degenerative changes are similar. IMPRESSION: Multiple levels of lumbar spine degenerative change are seen, which are mildly progressed at the L2-L3 level. On this study, the degrees of endplate edema versus bone marrow fatty metaplasia have changed compared to the prior examination. Dictated by: Reji Ortiz M.D. on 05/24/2021 at 13:42 Approved by: Reji Ortiz M.D. on 05/24/2021 at 13:51
== END ==
PROVIDERS: PCP Nurse Practitioner; Referring Provider Orthopaedic Surgery; Visit Provider Orthopaedic Surgery
DX: M54.42 Lumbago with sciatica, left side (principal); M54.41 Lumbago with sciatica, right side
CPT/HCPCS: 72148

== ENCOUNTER → 2021-05-29 12:47 | Outpatient (CLI) | payer OTHER, SELFPAY ==
--- NOTE | 2021-05-29 13:10 | DI.CT.S_ITS ---
PROCEDURE: CT LUMBAR SPINE WO CON INDICATIONS: Lumbago with sciatica, left side TECHNIQUE: Noncontrast 3 mm thick sections acquired from the T12 level to the sacrum. Sagittal and coronal reformats were constructed. For radiation dose reduction, the following was used: automated exposure control. COMPARISON: [facility], MR, MR LUMBAR SPINE WO CON, 05/24/2021, 12:19. [facility], CR, XR LUMBAR SPINE WITH FLEXION EXTENSION 5 VIEWS, 05/14/2021, 14:05. FINDINGS: Image quality: Excellent. Bones: There is trace L3-L4 anterolisthesis secondary to bilateral L3 pars interarticularis defects. There is trace L1-L2, L2-L3 and L4-L5 retrolisthesis secondary to facet hypertrophy. No acute vertebral body compression fractures. No suspicious lytic or blastic bony lesions. No pars defects. T12-L1: Disc height is normal. No central stenosis. No neural foraminal narrowing. No neural compression. L1-L2: Mild loss of disc height. Mild, diffuse disc bulge. Mild bilateral facet hypertrophy. Mild narrowing of the central canal. Moderate bilateral neural foraminal narrowing. No neural compression. L2-L3: Loss of disc height. Mild, diffuse disc bulge. Mild bilateral facet hypertrophy. Moderate narrowing of the central canal. Moderate to severe bilateral neural foraminal narrowing with slight compression of the exiting L2 nerve roots. L3-L4: Loss of disc height. Vacuum disc phenomenon. Moderate bilateral facet hypertrophy. Mild to moderate narrowing of the central canal. Mild to moderate right and moderate left neural foraminal narrowing. No neural compression. L4-L5: Loss of disc height. Vacuum disc phenomenon. Moderate, diffuse disc bulge. Moderate bilateral facet hypertrophy. Moderate to severe narrowing of the central canal. Severe right and moderate to severe left neural foraminal narrowing with compression of the exiting bilateral L4 nerve roots. L5-S1: Loss of disc height. Vacuum disc phenomenon. Moderate bilateral facet hypertrophy. Moderate, diffuse disc bulge. Moderate narrowing of the central canal. Severe bilateral neural foraminal narrowing with compression of the exiting L5 nerve roots. Soft tissues: No retroperitoneal masses or hematomas. Visualized aorta is normal in caliber. Scattered atherosclerotic calcifications involving the abdominal and pelvic vasculature. IMPRESSION: 1. Grade 1 L3-L4 isthmic spondylolisthesis. Grade 1 L1-L2, L2-L3 and L4-L5 degenerative spondylolisthesis. 2. Multilevel degenerative disc disease. 3. Multilevel facet arthropathy. 4. Moderate to severe L4-L5 central canal narrowing. 5. Severe bilateral L5-S1 neural foraminal narrowing. Severe right and moderate to severe left L4-L5 neural foraminal narrowing. Moderate to severe bilateral L2-L3 neural foraminal narrowing. Dictated by: Brenda Ramirez MD, PhD on 05/29/2021 at 14:46 Approved by: Brenda Ramirez MD, PhD on 05/29/2021 at 14:57
== END ==
PROVIDERS: PCP Nurse Practitioner; Referring Provider Orthopaedic Surgery; Visit Provider Orthopaedic Surgery
DX: M51.16 Intervertebral disc disorders with radiculopathy, lumbar region (principal); M51.17 Intervertebral disc disorders with radiculopathy, lumbosacral region; M47.26 Other spondylosis with radiculopathy, lumbar region; M47.27 Other spondylosis with radiculopathy, lumbosacral region; M48.061 Spinal stenosis, lumbar region without neurogenic claudication; M48.07 Spinal stenosis, lumbosacral region; M43.16 Spondylolisthesis, lumbar region
CPT/HCPCS: 72131

== ENCOUNTER → 2021-06-27 09:09 | Outpatient (CLI) | payer OTHER, SELFPAY ==
[2021-06-27 10:37] LABS: Free T3, Triiodothyronine Free 4.48 pg/mL (2.77-5.27); Free T4, Direct Thyroxine 1.43 ng/dL (0.78-2.19)
[2021-06-27 10:50] LABS: Thyroid Stimulating Hormone 1.91 uIU/mL (0.47-4.68)
[2021-06-27 10:52] LABS: Alanine Aminotransferase 21 IU/L (<50); Albumin 4.3 g/dL (3.5-5.0); Albumin Globulin Ratio 1.9 (1.0-2.8); Alkaline Phosphatase 82 U/L (38-126); Aspartate Aminotransferase 27 IU/L (17-59); BUN Creatinine Ratio 16.9 (6-22); Bilirubin Total 0.7 mg/dL (0.2-1.3); Blood Urea Nitrogen 13 mg/dL (9-20); Calcium 9.4 mg/dL (8.4-10.2); Carbon Dioxide 26 mmol/L (22-32); Chloride 92 mmol/L (98-107); Cholesterol 182 mg/dL (140-199); Estimated Glomerular Filt Rate > 60.0 mL/min (>60); Globulin 2.3 g/dL (1.7-4.1); Glucose 86 mg/dL (80-110); HDL Cholesterol 80 mg/dL (40-60); HEMOLYSIS < 15 (0-50); LDL Cholesterol Calculated 91 mg/dL (<100); Sodium 127 mmol/L (137-145); Total Protein 6.6 g/dL (6.3-8.2); Triglycerides 56 mg/dL (35-150)
[2021-06-27 11:20] LABS: Prostate Specific Antigen Scrn 1.19 ng/mL (0.1-4.0)
== END ==
PROVIDERS: PCP Nurse Practitioner; Referring Provider Nurse Practitioner; Visit Provider Nurse Practitioner
DX: E78.2 Mixed hyperlipidemia (principal); I10 Essential (primary) hypertension; Z79.899 Other long term (current) drug therapy; Z12.5 Encounter for screening for malignant neoplasm of prostate
CPT/HCPCS: 36415; 80053; 80061; 84439; 84443; 84481; G0103

== ENCOUNTER → 2021-07-31 10:39 | Outpatient (CLI) | payer OTHER, SELFPAY ==
[2021-07-31 12:15] LABS: BUN Creatinine Ratio 23.4 (6-22); Blood Urea Nitrogen 15 mg/dL (9-20); Calcium 9.3 mg/dL (8.4-10.2); Carbon Dioxide 25 mmol/L (22-32); Chloride 93 mmol/L (98-107); Estimated Glomerular Filt Rate > 60.0 mL/min (>60); Glucose 83 mg/dL (80-110); HEMOLYSIS 19 (0-50); Potassium 4.5 mmol/L (3.4-5.1); Sodium 127 mmol/L (137-145)
== END ==
PROVIDERS: PCP Nurse Practitioner; Referring Provider Nurse Practitioner; Visit Provider Nurse Practitioner
DX: E87.1 Hypo-osmolality and hyponatremia (principal)
CPT/HCPCS: 36415; 80048

== ENCOUNTER → 2021-11-26 10:32 | Outpatient (CLI) | payer OTHER, SELFPAY ==
--- NOTE | 2021-11-26 10:34 | DI.US.S_ITS ---
PROCEDURE: US ABDOMEN LIMITED INDICATIONS: LLQ abd pain TECHNIQUE: Real-time focused scanning was performed of the abdomen, with image documentation. COMPARISON: [facility], CT, CT LUMBAR SPINE WO CON, 05/29/2021, 12:54. (A prior abdomen and pelvis CT from 2006 is not available for review from the archive at the time of this study.) FINDINGS: Scanning is performed at the area of the left groin where the patient feels the bulge. At this site, there is an apparent bowel containing hernia. In this patient, the Valsalva maneuver was not very helpful. IMPRESSION: Apparent bowel containing hernia within the left groin at the area of clinical concern. If clinically appropriate, please consider follow-up abdomen and pelvis CT. Please consider surgical consultation. Dictated by: Reji Ortiz M.D. on 11/26/2021 at 10:20 Approved by: Reji Ortiz M.D. on 11/26/2021 at 10:27
== END ==
PROVIDERS: PCP Nurse Practitioner; Referring Provider Nurse Practitioner; Visit Provider Nurse Practitioner
DX: R10.32 Left lower quadrant pain (principal)
CPT/HCPCS: 76705

== ENCOUNTER → 2022-01-15 08:49 | Outpatient (CLI) | payer OTHER, SELFPAY ==
[2022-01-15 09:19] LABS: COVID19 -Nasal RAPID Negative (Negative)
== END ==
PROVIDERS: PCP Nurse Practitioner; Visit Provider Surgery
DX: Z01.812 Encounter for preprocedural laboratory examination (principal); Z20.822 Contact with and (suspected) exposure to COVID-19
CPT/HCPCS: 87635

== ENCOUNTER 2022-01-15 09:54 | Day surgery (SDC) | payer OTHER, SELFPAY ==
[2022-01-09 09:27] VITALS: BMI 25.8
[2022-01-15] VITALS (7 sets, daily range): BP systolic 102–134; BP diastolic 64–89; PULSE 75–92; RESP 10–18; TEMP 35.9–36.4; O2SAT 95–99; BMI 25.8
[2022-01-15] MEDS: LACTATED RINGERS 1,000 ML 42 ML IV (10:44)
--- NOTE | 2022-01-15 12:19 | SUR.OPER ---
Supine on padded OR bed, head on pillow, arms secured on padded arm boards at <90 degrees abduction, legs uncrossed, safety belt at thigh, tape over blanket over lower legs.
--- NOTE | 2022-01-15 12:34 | PM.HP.1 ---
History of Present Illness History of Present Illness Date Patient Seen: 01/15/22 Time Patient Seen: 12:34 Chief complaint: LAC Narrative: 66-year-old man with a symptomatic left inguinal hernia. See office note for details. Patient History Medical History (Updated 01/09/22 @ 09:30 by Rachel Pantoja RN) Arthritis Bowel obstruction Cervical myelopathy Chronic left hip pain Chronic pain DDD (degenerative disc disease), lumbar Degenerative joint disease (DJD) of hip Encounter for tobacco use cessation counseling Fecal incontinence (~2019) Gait instability Hernia, inguinal, left Herniated nucleus pulposus, L2-3 Herniated nucleus pulposus, L4-5 Herniated nucleus pulposus, L5-S1 HTN (hypertension) Hyperlipidemia Hyponatremia Left leg weakness Lumbar radiculopathy Measles (Unknown) Pain in left thigh Pain in right thigh Resolved chickenpox (Unknown) Tobacco abuse Trochanteric bursitis of both hips Urinary frequency Weakness of both lower extremities Surgical History Status post cervical discectomy Status post cervical spinal fusion Family & Social History Family History Father Diabetes mellitus Hypertension Mother Depression Sister Hypertension Grandmother No problems noted. Grandfather No problems noted. Grandfather No problems noted. Grandmother No problems noted. Social History: household members spouse Tobacco & Substance use: Tobacco type cigarettes Smoking Status Current every day smoker Smoking packs per day 1 alcohol intake current alcohol intake frequency 0-2 drinks per day Substance Use Type does not use Meds Home Medications and Allergies Home Medications Medication Instructions Recorded Confirmed Type multivitamin 1 cap PO DAILY 02/03/19 01/15/22 History Disabled Parking Permit See Rx Instructions .ROUTE 07/16/21 01/09/22 Rx .COMPLEX #1 unit amlodipine 10 mg tablet 10 mg PO DAILY #90 tab 07/16/21 01/15/22 Rx gabapentin 300 mg capsule 900 mg PO TID #810 cap 07/16/21 01/15/22 Rx meloxicam 7.5 mg tablet 7.5 mg PO BID #180 tab 12/26/21 01/15/22 Rx Allergies Allergy/AdvReac Type Severity Reaction Status Date / Time No Known Drug Allergies Allergy Verified 01/15/22 10:40 Exam Vital Signs (past 8 hours): - 01/15/22 10:28 Temperature 97.1 F L Pulse Rate 76 Respiratory Rate 15 Blood Pressure 134/89 Pulse Oximetry 96 Oxygen Delivery Method Room Air Narrative Exam Narrative: Reducible left inguinal hernia Assessment & Plan Assessment and plan (1) Hernia, inguinal, left: Status: Acute Plan Plan for open left inguinal hernia repair with mesh COVID-19 COVID-19 status: Negative Result date/Date tested (Pos, Neg/Pending): 01/15/22 Time Spent With Patient Critical Care time: I spent a total of [] minutes of critical care time on this patient's care today; this time is exclusive of procedural time.
[2022-01-15] MEDS: CEFAZOLIN 2 GM/20 ML SYRINGE IV (12:43)
[2022-01-15] MEDS: BUPIVACAINE 0.5% (PF) VIAL 30 ML INJ (13:02)
[2022-01-15] MEDS: LIDOCAINE 1% W/EPI 20 ML INJ (13:04)
--- NOTE | 2022-01-15 13:57 | P.OP_ITS ---
Operative Date/Time/Diagnoses Date of procedure: 01/15/22 Time of procedure: 13:57 Pre-op diagnosis: Left inguinal hernia Post-op diagnosis: same Procedure & Clinicians Procedure: Open left inguinal hernia repair with mesh Same procedure as scheduled: Yes Surgeon: Eduardo Harrison Operative Notes Procedure in detail: Preoperative antibiotic was administered. The patient was brought to the operating room and placed on the table in supine position general anesthesia was induced. The left groin was prepped and draped in the normal fashion and a time-out was performed. Roughly 10 mL of local anesthetic were injected into the skin and subcutaneous adipose tissue over the left groin. A 6 cm incision was made over the left inguinal canal. Dissection was carried down through the subcutaneous adipose tissue. A bridging vein was cauterized. We exposed the external oblique aponeurosis in the direction of the fibers. Additional local was injected deep to the aponeurosis. The external oblique fascia was very thinned out by the large hernia and the cautery device created a small opening in external oblique aponeurosis medially. Metzenbaum scissors were used to completely open the aponeurosis in the direction of the fibers taking care not to injure the underlying ilioinguinal nerve which was well seen and protected. We completely exposed the inguinal canal. The cord was dissected free from the inguinal ligament and floor of the inguinal canal and the external oblique aponeurosis was dissected off of the internal oblique taking care not to injure the hypogastric nerve. We encircled the cord with a [place] drain for retraction. There was a large sac which was dissected off the cord structures. We did create a small rent in the sac which was closed with 3-0 Vicryl and running fashion. The sac was then reduced back into the abdominal cavity. There was a small fatty cord lipoma that was removed and discarded. We then fashioned a piece of polypropylene mesh to fit the inguinal canal floor. The mesh was secured with multiple interrupted 3-0 Prolene sutures to the pubic tubercle and shelving edge of the inguinal ligament as well as to the conjoint tendon medially. We overlapped the tails to recreate an internal ring and secured the medial tail to the inguinal ligament with additional sutures. We injected some more local into the fatty tissue in the inguinal canal and cord. Finally, we removed the [place] drain and closed the external oblique fascia with a running 3-0 Vicryl suture. Skin was closed with interrupted 3-0 Vicryl dermal sutures and a running 4 Monocryl subcuticular stitch. EBL 15 mL The patient was awakened and brought to recovery room. Post-operative Condition: stable Disposition: PACU
--- NOTE | 2022-01-15 14:28 | SUR.PHASEI ---
01/15/22-1425-new afib rhythm for patient. asymptomatic. seen in OR. Patient denied history. vss. no labs required per DR. Harrison. Dr Harrison to [facility] if hospitalist to see pt for new onset A Fib. holding in pacu. otherwise met criteria for phase 2. charge auditor, Elisabet Gama updated. patient refuses offers for po fluids.keeps requesting epifanio garcia. Pt notified again, we dont carry Epifanio Garcia and no alcohol today.
--- NOTE | 2022-01-15 14:32 | SUR.PHASEI ---
Addendum entered by Jennie Caballero R.N. 01/15/22 15:00: 1450-Patients given discharges instructions by Elisabet Gama RN for home care, aware of need to follow up/see Dr Antonio re A fib. and bronwyny pass in envelope for ride home. copy of mesh implant card sent home with patient. Addendum entered by Jennie Caballero R.N. 01/15/22 14:58: 01/15/22 1440-Dr Hurtado aware of Dr Harrison order to send home and follow up with primary requarding new onset of A Fib. stable. nonsymptomatic. no new orders. patient anxious to depart hospital and go home . Original Note: 01/15/22 1430-Dr Harrison here and spoke with patient. Clear to go home. Encouraged follow up for Dr Antonio to see for ekg check up.
--- NOTE | 2022-01-15 15:17 | SUR.PHASEII ---
1458-Discharged per criteria with all belongings, wearing ring, has cane. Copy of Ekg, ferry pass, home instructions. patient aware that needs to stop at [facility] for prescription prior to ferry ride. denies pain or nausea. gait steady with cane. dressing remains cdi.
== END 2022-01-15 14:58 | disposition home or self-care (01) ==
PROVIDERS: PCP Nurse Practitioner; Referring Provider Surgery; Visit Provider Surgery
PROC: (CPT 49505; principal; 2022-01-15 11:45)
DX: K40.90 Unilateral inguinal hernia, without obstruction or gangrene, not specified as recurrent (principal); Z20.822 Contact with and (suspected) exposure to COVID-19; Z01.812 Encounter for preprocedural laboratory examination
CPT/HCPCS: 49505; 87635; 93005; 93010; C9803; J0131; J0690; J1100; J1885; J2405; J2704; J3010

== ENCOUNTER → 2022-02-12 14:51 | Outpatient (CLI) | payer OTHER, SELFPAY ==
[2022-02-12 17:27] LABS: BUN Creatinine Ratio 13.8 (6-22); Blood Urea Nitrogen 12 mg/dL (9-20); Calcium 8.3 mg/dL (8.4-10.2); Carbon Dioxide 24 mmol/L (22-32); Chloride 97 mmol/L (98-107); Estimated Glomerular Filt Rate > 60 mL/min (>60); Glucose 95 mg/dL (80-110); HEMOLYSIS < 15 (0-50); Magnesium 2.1 mg/dL (1.6-2.3); Potassium 3.3 mmol/L (3.4-5.1); Sodium 132 mmol/L (137-145)
== END ==
PROVIDERS: PCP Nurse Practitioner; Referring Provider Nurse Practitioner; Visit Provider Nurse Practitioner
DX: E87.1 Hypo-osmolality and hyponatremia (principal)
CPT/HCPCS: 36415; 80048; 83735

== ENCOUNTER 2023-02-28 00:10 | Observation (INO) | payer OTHER, SELFPAY ==
[2023-02-28] VITALS (26 sets, daily range): BP systolic 111–181; BP diastolic 72–110; PULSE 64–104; RESP 18–53; TEMP 36.3–36.6; O2SAT 93–97; BMI 25.8
--- NOTE | 2023-02-28 00:18 | DI.RAD.S_ITS ---
PROCEDURE: XR CHEST 1V INDICATIONS: SOB TECHNIQUE: One view of the chest was acquired. COMPARISON: [facility], , CHEST 2 VIEW, 01/21/2007, 12:44. FINDINGS: Surgical changes and devices: None. Lungs and pleura: Lungs are clear. No pleural effusions or pneumothorax. Mediastinum: Mediastinal contours appear normal. Heart size is normal. Bones and chest wall: No suspicious bony lesions. Overlying soft tissues appear unremarkable. IMPRESSION: No acute pulmonary process. Dictated by: Hali Joseph M.D. on 02/28/2023 at 1:10 Approved by: Hali Joseph M.D. on 02/28/2023 at 1:11
--- NOTE | 2023-02-28 00:22 | ED_ITS ---
HPI - General Adult <Isai Jasmine DO - Last Filed: 03/01/23 00:40> General Chief complaint: Chest Pain Stated complaint: Afib Time Seen by Provider: 02/28/23 00:13 History of Present Illness HPI narrative: 68-year-old male smoker with history of hypertension, hyperlipidemia and persistent atrial fibrillation presents by [facility] for evaluation of chest pain and shortness of breath over the past day or 2. He states that he is not been taking his medications other than gabapentin for some time and isn't exactly sure why. He states that he has been having chest pain for least a couple days but has been persistent over the course of the day at its most intense a 6/10 and currently a 5/10. He states it is a pressure and without obvious provocation, palliation and no radiation. He denies any recent trauma or injury. He is had no fever or chills. He denies any headaches, blurred vision, nausea, vomiting or diarrhea. Related Data Home Medications Medication Instructions Recorded Confirmed multivitamin 1 cap PO DAILY 02/03/19 02/12/22 Previous Rx's Medication Instructions Recorded Disabled Parking Permit See Rx Instructions .Route 07/16/21 .COMPLEX #1 unit amlodipine 10 mg tablet 10 mg PO DAILY #90 tabs 07/16/21 meloxicam 7.5 mg tablet 7.5 mg PO BID #180 tabs 12/26/21 hydrocodone 5 mg-acetaminophen 325 1 tab PO Q8H PRN pain #14 tabs 01/15/22 mg tablet potassium chloride 10 mEq 10 meq PO DAILY #30 caps 02/13/22 capsule,extended release rivaroxaban 20 mg tablet 20 mg PO QPM #90 tabs 02/18/22 gabapentin 300 mg capsule See Rx Instructions .Route 11/01/22 .COMPLEX #1,080 caps Allergies Allergy/AdvReac Type Severity Reaction Status Date / Time No Known Drug Allergies Allergy Verified 02/28/23 00:27 Review of Systems <Isai Jasmine DO - Last Filed: 03/01/23 00:40> Review of Systems Narrative: GENERAL: Denies chills, fatigue, malaise, fever, sweats. HEENT: Denies sinus pain, ear pain, sore throat, difficulty swallowing, dizziness. RESPIRATORY: Denies dyspnea, cough, wheezing, hemoptysis, sputum. CARDIOVASCULAR: See HPI GASTROINTESTINAL: Denies nausea, vomiting, abdominal pain, diarrhea, constipation, melena. : Denies dysuria, frequency, incontinence, hematuria, urinary retention. MUSCULOSKELETAL: denies weakness, joint pain, or bony pain SKIN: Denies rash, skin lesions, or other NEUROLOGIC: Denies weakness, headache, numbness, change in speech, confusion, seizures, incoordination. PSYCHIATRIC: No concerning psychosocial issues. 12 point review of systems is negative except for those stated above Patient History <Isai Jasmine DO - Last Filed: 03/01/23 00:40> Medical History Arthritis Atrial fibrillation Atrial fibrillation Bowel obstruction Cervical myelopathy Chronic left hip pain Chronic pain DDD (degenerative disc disease), lumbar Degenerative joint disease (DJD) of hip Encounter for tobacco use cessation counseling Encounter for tobacco use cessation counseling Fecal incontinence (~2019) Gait instability Hernia, inguinal, left Herniated nucleus pulposus, L2-3 Herniated nucleus pulposus, L4-5 Herniated nucleus pulposus, L5-S1 HTN (hypertension) Hyperlipidemia Hyponatremia Left leg weakness Lumbar radiculopathy Measles (Unknown) Pain in left thigh Pain in right thigh Resolved chickenpox (Unknown) Tobacco use disorder Trochanteric bursitis of both hips Urinary frequency Weakness of both lower extremities Surgical History History of left inguinal hernia repair Status post cervical discectomy Status post cervical spinal fusion Family History Father Diabetes mellitus Hypertension Mother Depression Sister Hypertension Grandmother No problems noted. Grandfather No problems noted. Grandfather No problems noted. Grandmother No problems noted. Social History marital status: household members: spouse education level: high school occupational status: employed leisure activities: exercise seatbelt use: always helmet use: Yes water heater temp set < 120 deg: Yes working smoke detector in home: Yes fire extinguisher in home: Yes carbon monox detector in home: Yes firearms in home: Yes do you feel safe at home: Yes Smoking Status: Current every day smoker Tobacco: How many years used: 40 quit status: considering quitting alcohol intake: current substance use type: does not use during the past year weight has: increased > 10 lbs well-balanced diet: daily or most days daily servings fruits/ve-1 caffeine: Yes eating out: rarely or never Smoking Status: Current every day smoker alcohol intake frequency: 0-2 drinks per day Substance Use Type: does not use Exam <DO Veronica Mckeon Last Filed: 03/01/23 00:40> Narrative Exam Narrative: GENERAL: [68] year old patient appears stated age. Well-developed patient, in mild distress. HEAD: Atraumatic. Normocephalic. EYES: Pupils equal round and reactive. Extraocular motions intact. No scleral icterus. No injection or drainage. ENT: Nose without bleeding, purulent drainage. Throat without erythema, tonsillar hypertrophy or exudate. Airway patent. NECK: Trachea midline. Non tender CARDIOVASCULAR: Regular rate and rhythm without murmurs, gallops, or rubs. RESPIRATORY: Clear to auscultation. Breath sounds equal bilaterally. No wheezes, rales, or rhonchi. GASTROINTESTINAL: Abdomen soft, non-tender, nondistended. EXTREMITIES: No edema or joint tenderness. BACK: Nontender without deformity or crepitance. No flank tenderness. NEURO: AOx3. SKIN: No rash or erythema of visible areas Initial Vital Signs Initial Vital Signs: Vital Signs Pulse Rate 91 H 02/28/23 00:16 Respiratory Rate 23 02/28/23 00:16 <Felicitas Vincent DO - Last Filed: 02/28/23 08:47> Initial Vital Signs Initial Vital Signs: Vital Signs Pulse Rate 91 H 02/28/23 00:16 Respiratory Rate 02/28/23 00:16 Scores <Isai Jasmine DO - Last Filed: 03/01/23 00:40> HEART Score Heart Score history: Moderately Suspicious Heart Score EKG: Normal Heart Score Age: > or = 65 years old Heart Score risk factors: > 3 risk factors or hx of atherosclerotic disease Heart Score troponin: < or = to normal limit Heart Score Total: 5 <Felicitas Vincent DO - Last Filed: 02/28/23 08:47> HEART Score Heart Score Total: 5 Course <Isai Jasmine DO - Last Filed: 03/01/23 00:40> Orders Ordered: Discontinued Medications Acetaminophen (Acetaminophen 325 Mg Tablet) 650 mg PO Q6H PRN PRN Reason: Fever/Mild Pain (1-3) Amlodipine Besylate (Amlodipine 5 Mg Tablet) 10 mg PO DAILY [facility] Last Admin: 02/28/23 10:54 Dose: 10 mg Documented By: HUSEYIN Aspirin (Aspirin 81 Mg Chew Tab) 324 mg PO NOW ONE Stop: 02/28/23 01:25 Last Admin: 02/28/23 01:31 Dose: Not Given Documented By: Aspirin (Aspirin Ec 81 Mg Tablet) 81 mg PO DAILY [facility] Last Admin: 02/28/23 10:54 Dose: 81 mg Documented By: HUSEYIN Atorvastatin Calcium (Atorvastatin 20 Mg Tablet) 20 mg PO BEDTIME [facility] Furosemide (Furosemide 40 Mg/4 Ml Vial) 40 mg IV NOW ONE Stop: 02/28/23 01:25 Last Admin: 02/28/23 01:31 Dose: 40 mg Documented By: Ketorolac Tromethamine (Ketorolac 30 Mg/Ml Vial) 15 mg IV NOW ONE Stop: 02/28/23 02:39 Last Admin: 02/28/23 02:51 Dose: Not Given Documented By: Melatonin (Melatonin 3 Mg Tablet) 6 mg PO BEDTIME PRN PRN Reason: Insomnia Metoprolol Tartrate (Metoprolol Ir 25 Mg Tablet) 25 mg PO NOW ONE Stop: 02/28/23 04:08 Last Admin: 02/28/23 04:11 Dose: 25 mg Documented By: Naloxone HCl (Naloxone 0.4 Mg/Ml Vial) 0.2 mg IV Q2MIN PRN PRN Reason: Opiate Reversal Nitroglycerin (Nitroglycerin 0.4 Mg Sl Tab) 0.4 mg SL [id number] PRN PRN Reason: Chest Pain Last Admin: 02/28/23 01:37 Dose: 0.4 mg Documented By: Admin: 02/28/23 01:30 Dose: 0.4 mg Documented By: Nitroglycerin (Nitroglycerin Oint 1 Inch/Gm Oint...G.) 1 inch TOP NOW ONE Stop: 02/28/23 02:39 Last Admin: 02/28/23 02:52 Dose: Not Given Documented By: Polyethylene Glycol (Polyethylene Glycol 3350 17 Gm Powd.Pack) 17 gm PO DAILY PRN PRN Reason: Constipation Rivaroxaban (Rivaroxaban 10 Mg Tablet) 20 mg PO QPM JOHN Sennosides (Sennosides 8.6 Mg Tablet) 8.6 mg PO BID PRN PRN Reason: Constipation Consultations Consultation #1: discussed with hospitalist (Earl). Certainly agrees with need for admission, b ut states cannot accept without confirmation that stress test can be obtained. Vital Signs Vital signs: Vital Signs - 8 hr 02/28/23 00:35 02/28/23 00:35 02/28/23 01:00 Pulse Rate 91 H Respiratory Rate Blood Pressure 141/97 H 151/104 H Pulse Oximetry 96 Oxygen Delivery Method Room Air 02/28/23 01:00 02/28/23 01:30 02/28/23 01:37 Pulse Rate 91 H 89 96 H Respiratory Rate 23 Blood Pressure 162/109 H 145/81 H Pulse Oximetry 95 Oxygen Delivery Method 02/28/23 01:30 02/28/23 01:36 02/28/23 01:36 Pulse Rate 91 H 101 H Respiratory Rate 23 Blood Pressure 145/81 H Pulse Oximetry 94 93 Oxygen Delivery Method 02/28/23 02:00 02/28/23 02:08 02/28/23 02:08 Pulse Rate 94 H 92 H Respiratory Rate 18 19 Blood Pressure 111/86 Pulse Oximetry 95 93 Oxygen Delivery Method 02/28/23 02:30 02/28/23 02:30 02/28/23 03:00 Pulse Rate 96 H Respiratory Rate 21 Blood Pressure 156/91 H 133/96 H Pulse Oximetry 93 Oxygen Delivery Method 02/28/23 03:00 02/28/23 03:30 02/28/23 04:00 Pulse Rate 93 H 96 H Respiratory Rate 18 20 Blood Pressure 181/108 H Pulse Oximetry 93 96 Oxygen Delivery Method 02/28/23 04:00 02/28/23 04:08 02/28/23 04:08 Pulse Rate 104 H 94 H Respiratory Rate 18 Blood Pressure 181/92 H Pulse Oximetry 96 94 Oxygen Delivery Method 02/28/23 04:30 02/28/23 04:30 02/28/23 05:00 Pulse Rate 94 H Respiratory Rate 21 Blood Pressure 160/110 H 137/72 Pulse Oximetry 95 Oxygen Delivery Method 02/28/23 05:00 02/28/23 05:30 02/28/23 05:30 Pulse Rate 87 80 Respiratory Rate 18 19 Blood Pressure 136/92 H Pulse Oximetry 93 94 Oxygen Delivery Method 02/28/23 05:46 02/28/23 05:46 02/28/23 06:00 Pulse Rate 86 Respiratory Rate 21 Blood Pressure 123/84 154/84 H Pulse Oximetry 95 Oxygen Delivery Method 02/28/23 06:00 02/28/23 06:30 02/28/23 06:31 Pulse Rate 83 85 88 Respiratory Rate 19 21 22 Blood Pressure Pulse Oximetry 93 95 97 Oxygen Delivery Method 02/28/23 06:31 02/28/23 07:00 02/28/23 07:00 Pulse Rate 89 Respiratory Rate Blood Pressure 160/78 H 133/87 Pulse Oximetry 94 Oxygen Delivery Method 02/28/23 07:30 02/28/23 07:30 02/28/23 08:00 Pulse Rate 85 90 Respiratory Rate 53 H Blood Pressure 147/74 H Pulse Oximetry 94 93 Oxygen Delivery Method <Felicitas Vincent DO - Last Filed: 02/28/23 08:47> Orders Ordered: Discontinued Medications Acetaminophen (Acetaminophen 325 Mg Tablet) 650 mg PO Q6H PRN PRN Reason: Fever/Mild Pain (1-3) Amlodipine Besylate (Amlodipine 5 Mg Tablet) 10 mg PO DAILY [facility] Last Admin: 02/28/23 10:54 Dose: 10 mg Documented By: HUSEYIN Aspirin (Aspirin 81 Mg Chew Tab) 324 mg PO NOW ONE Stop: 02/28/23 01:25 Last Admin: 02/28/23 01:31 Dose: Not Given Documented By: Aspirin (Aspirin Ec 81 Mg Tablet) 81 mg PO DAILY [facility] Last Admin: 02/28/23 10:54 Dose: 81 mg Documented By: HUSEYIN Atorvastatin Calcium (Atorvastatin 20 Mg Tablet) 20 mg PO BEDTIME [facility] Furosemide (Furosemide 40 Mg/4 Ml Vial) 40 mg IV NOW ONE Stop: 02/28/23 01:25 Last Admin: 02/28/23 01:31 Dose: 40 mg Documented By: Ketorolac Tromethamine (Ketorolac 30 Mg/Ml Vial) 15 mg IV NOW ONE Stop: 02/28/23 02:39 Last Admin: 02/28/23 02:51 Dose: Not Given Documented By: Melatonin (Melatonin 3 Mg Tablet) 6 mg PO BEDTIME PRN PRN Reason: Insomnia Metoprolol Tartrate (Metoprolol Ir 25 Mg Tablet) 25 mg PO NOW ONE Stop: 02/28/23 04:08 Last Admin: 02/28/23 04:11 Dose: 25 mg Documented By: Naloxone HCl (Naloxone 0.4 Mg/Ml Vial) 0.2 mg IV Q2MIN PRN PRN Reason: Opiate Reversal Nitroglycerin (Nitroglycerin 0.4 Mg Sl Tab) 0.4 mg SL [id number] PRN PRN Reason: Chest Pain Last Admin: 02/28/23 01:37 Dose: 0.4 mg Documented By: Admin: 02/28/23 01:30 Dose: 0.4 mg Documented By: Nitroglycerin (Nitroglycerin Oint 1 Inch/Gm Oint...G.) 1 inch TOP NOW ONE Stop: 02/28/23 02:39 Last Admin: 02/28/23 02:52 Dose: Not Given Documented By: Polyethylene Glycol (Polyethylene Glycol 3350 17 Gm Powd.Pack) 17 gm PO DAILY PRN PRN Reason: Constipation Rivaroxaban (Rivaroxaban 10 Mg Tablet) 20 mg PO QPM JOHN Sennosides (Sennosides 8.6 Mg Tablet) 8.6 mg PO BID PRN PRN Reason: Constipation Vital Signs Vital signs: Vital Signs - 8 hr 02/28/23 00:35 02/28/23 00:35 02/28/23 01:00 Pulse Rate 91 H Respiratory Rate Blood Pressure 141/97 H 151/104 H Pulse Oximetry 96 Oxygen Delivery Method Room Air 02/28/23 01:00 02/28/23 01:30 02/28/23 01:37 Pulse Rate 91 H 89 96 H Respiratory Rate 23 Blood Pressure 162/109 H 145/81 H Pulse Oximetry 95 Oxygen Delivery Method 02/28/23 01:30 02/28/23 01:36 02/28/23 01:36 Pulse Rate 91 H 101 H Respiratory Rate 23 Blood Pressure 145/81 H Pulse Oximetry 94 93 Oxygen Delivery Method 02/28/23 02:00 02/28/23 02:08 02/28/23 02:08 Pulse Rate 94 H 92 H Respiratory Rate 18 19 Blood Pressure 111/86 Pulse Oximetry 95 93 Oxygen Delivery Method 02/28/23 02:30 02/28/23 02:30 02/28/23 03:00 Pulse Rate 96 H Respiratory Rate 21 Blood Pressure 156/91 H 133/96 H Pulse Oximetry 93 Oxygen Delivery Method 02/28/23 03:00 02/28/23 03:30 02/28/23 04:00 Pulse Rate 93 H 96 H Respiratory Rate 18 20 Blood Pressure 181/108 H Pulse Oximetry 93 96 Oxygen Delivery Method 02/28/23 04:00 02/28/23 04:08 02/28/23 04:08 Pulse Rate 104 H 94 H Respiratory Rate 18 Blood Pressure 181/92 H Pulse Oximetry 96 94 Oxygen Delivery Method 02/28/23 04:30 02/28/23 04:30 02/28/23 05:00 Pulse Rate 94 H Respiratory Rate 21 Blood Pressure 160/110 H 137/72 Pulse Oximetry 95 Oxygen Delivery Method 02/28/23 05:00 02/28/23 05:30 02/28/23 05:30 Pulse Rate 87 80 Respiratory Rate 18 19 Blood Pressure 136/92 H Pulse Oximetry 93 94 Oxygen Delivery Method 02/28/23 05:46 02/28/23 05:46 02/28/23 06:00 Pulse Rate 86 Respiratory Rate 21 Blood Pressure 123/84 154/84 H Pulse Oximetry 95 Oxygen Delivery Method 02/28/23 06:00 02/28/23 06:30 02/28/23 06:31 Pulse Rate 83 85 88 Respiratory Rate 19 21 22 Blood Pressure Pulse Oximetry 93 95 97 Oxygen Delivery Method 02/28/23 06:31 02/28/23 07:00 02/28/23 07:00 Pulse Rate 89 Respiratory Rate Blood Pressure 160/78 H 133/87 Pulse Oximetry 94 Oxygen Delivery Method 02/28/23 07:30 02/28/23 07:30 02/28/23 08:00 Pulse Rate 85 90 Respiratory Rate 53 H Blood Pressure 147/74 H Pulse Oximetry 94 93 Oxygen Delivery Method Medical Decision Making <Isai Jasmine, DO - Last Filed: 03/01/23 00:40> Lab Data 02/28/23 00:18 02/28/23 00:18 Labs: Lab Results 02/28/23 02/28/23 02/28/23 Range/Units 00:18 00:18 00:18 WBC 10.5 (4.5-11.0) X10^3/uL RBC 5.21 (4.5-5.9) X10^6/uL Hgb 15.7 (13.5-17.5) g/dL Hct 45.9 (41-53) % MCV 88.3 (80-100) fL MCH 30.2 (26-34) PG MCHC 34.2 (30-36) % RDW 14.2 (11.6-14.8) % Plt Count 279 (150-400) X10^3/uL Neut % (Auto) 65.0 (50-75) % Lymph % (Auto) 20.1 L (25-40) % Wirt % (Auto) 12.3 (3-14) % Eos % (Auto) 1.6 L (2-4) % Baso % (Auto) 1.0 (0-2) % Neut # (Auto) 6800 (0861-2349) /uL Lymph # (Auto) 2100 (5235-9414) /uL Wirt # (Auto) 1300 H (0-900) /uL Eos # (Auto) 200 (0-450) /uL Baso # (Auto) 100 (0-100) /uL D-Dimer 444 (<500) ng/ml Sodium (137-145) mmol/L Potassium (3.4-5.1) mmol/L Chloride (98-107) mmol/L Carbon Dioxide (22-32) mmol/L BUN (9-20) mg/dL Creatinine (0.66-1.25) mg/dL Estimated GFR (>60) mL/min BUN/Creatinine Ratio (6-22) Glucose (80-110) mg/dL Calcium (8.4-10.2) mg/dL Magnesium (1.6-2.3) mg/dL Total Bilirubin (0.2-1.3) mg/dL AST (17-59) IU/L ALT (<50) IU/L Alkaline Phosphatase (38-126) U/L Total Creatine Kinase (55-170) U/L Troponin I (0.01-0.034) ng/mL NT-Pro-B Natriuret Pep (<125) pg/mL Total Protein (6.3-8.2) g/dL Albumin (3.5-5.0) g/dL Globulin (1.7-4.1) g/dL Albumin/Globulin Ratio (1.0-2.8) Triglycerides (35-150) mg/dL Cholesterol (140-199) mg/dL LDL Cholesterol, Calc (<100) mg/dL HDL Cholesterol (40-60) mg/dL Lipase (23-300) U/L Procalcitonin 0.07 (<0.5) ng/mL TSH (0.47-4.68) uIU/mL 02/28/23 02/28/23 02/28/23 Range/Units 00:18 00:18 00:18 WBC (4.5-11.0) X10^3/uL RBC (4.5-5.9) X10^6/uL Hgb (13.5-17.5) g/dL Hct (41-53) % MCV (80-100) fL MCH (26-34) PG MCHC (30-36) % RDW (11.6-14.8) % Plt Count (150-400) X10^3/uL Neut % (Auto) (50-75) % Lymph % (Auto) (25-40) % Wirt % (Auto) (3-14) % Eos % (Auto) (2-4) % Baso % (Auto) (0-2) % Neut # (Auto) (3879-1689) /uL Lymph # (Auto) (5026-4645) /uL Wirt # (Auto) (0-900) /uL Eos # (Auto) (0-450) /uL Baso # (Auto) (0-100) /uL D-Dimer (<500) ng/ml Sodium 131 L (137-145) mmol/L Potassium 4.7 (3.4-5.1) mmol/L Chloride 96 L (98-107) mmol/L Carbon Dioxide 26 (22-32) mmol/L BUN 23 H (9-20) mg/dL Creatinine 0.70 (0.66-1.25) mg/dL Estimated GFR > 60 (>60) mL/min BUN/Creatinine Ratio 32.9 H (6-22) Glucose 99 (80-110) mg/dL Calcium 8.9 (8.4-10.2) mg/dL Magnesium 2.2 (1.6-2.3) mg/dL Total Bilirubin 0.8 (0.2-1.3) mg/dL AST 26 (17-59) IU/L ALT 21 (<50) IU/L Alkaline Phosphatase 82 (38-126) U/L Total Creatine Kinase 81 (55-170) U/L Troponin I < 0.012 (0.01-0.034) ng/mL NT-Pro-B Natriuret Pep 575 H (<125) pg/mL Total Protein 7.3 (6.3-8.2) g/dL Albumin 4.4 (3.5-5.0) g/dL Globulin 2.9 (1.7-4.1) g/dL Albumin/Globulin Ratio 1.5 (1.0-2.8) Triglycerides (35-150) mg/dL Cholesterol (140-199) mg/dL LDL Cholesterol, Calc (<100) mg/dL HDL Cholesterol (40-60) mg/dL Lipase 149 (23-300) U/L Procalcitonin (<0.5) ng/mL TSH 3.16 (0.47-4.68) uIU/mL 02/28/23 02/28/23 02/28/23 Range/Units 03:18 07:35 07:35 WBC (4.5-11.0) X10^3/uL RBC (4.5-5.9) X10^6/uL Hgb (13.5-17.5) g/dL Hct (41-53) % MCV (80-100) fL MCH (26-34) PG MCHC (30-36) % RDW (11.6-14.8) % Plt Count (150-400) X10^3/uL Neut % (Auto) (50-75) % Lymph % (Auto) (25-40) % Wirt % (Auto) (3-14) % Eos % (Auto) (2-4) % Baso % (Auto) (0-2) % Neut # (Auto) (7013-9581) /uL Lymph # (Auto) (3473-7684) /uL Wirt # (Auto) (0-900) /uL Eos # (Auto) (0-450) /uL Baso # (Auto) (0-100) /uL D-Dimer (<500) ng/ml Sodium (137-145) mmol/L Potassium (3.4-5.1) mmol/L Chloride (98-107) mmol/L Carbon Dioxide (22-32) mmol/L BUN (9-20) mg/dL Creatinine (0.66-1.25) mg/dL Estimated GFR (>60) mL/min BUN/Creatinine Ratio (6-22) Glucose (80-110) mg/dL Calcium (8.4-10.2) mg/dL Magnesium (1.6-2.3) mg/dL Total Bilirubin (0.2-1.3) mg/dL AST (17-59) IU/L ALT (<50) IU/L Alkaline Phosphatase (38-126) U/L Total Creatine Kinase 96 (55-170) U/L Troponin I 0.023 < 0.012 (0.01-0.034) ng/mL NT-Pro-B Natriuret Pep (<125) pg/mL Total Protein (6.3-8.2) g/dL Albumin (3.5-5.0) g/dL Globulin (1.7-4.1) g/dL Albumin/Globulin Ratio (1.0-2.8) Triglycerides 61 (35-150) mg/dL Cholesterol 217 H (140-199) mg/dL LDL Cholesterol, Calc 118 H (<100) mg/dL HDL Cholesterol 87 H (40-60) mg/dL Lipase (23-300) U/L Procalcitonin (<0.5) ng/mL TSH (0.47-4.68) uIU/mL MDM Narrative Medical decision making narrative: [68] year old patient presents with chest pain Multiple etiologies for patient's symptoms considered including, but not limited to: [cardiac ischemia vs. CHF vs. pneumonia vs. PE vs. other] Prior Charts reviewed in our EMR Primary Historian: patient Labs reviewed and interpreted by myself: No leukocytosis, no anemia. Electrolytes, renal function, troponin x2 negative. D Dimer below age corrected cutoff Imaging reviewed: CXR and Chest CT without acute findings Patient's symptoms improved over duration of stay with above-stated therapies. Patient had complete resolution of pressure after 3 nitro. His work of breathing is greatly improved, at no point is he hypoxemic or a need of supplemental oxygen. No exertional symptoms, non-ischemic EKG. No signs of pneumonia. PE considered, but thought unlikely given negative Dimer. No indication to perform CTA. <Felicitas Vincent DO - Last Filed: 02/28/23 08:47> Lab Data Labs: Lab Results 02/28/23 02/28/23 02/28/23 Range/Units 00:18 00:18 00:18 WBC 10.5 (4.5-11.0) X10^3/uL RBC 5.21 (4.5-5.9) X10^6/uL Hgb 15.7 (13.5-17.5) g/dL Hct 45.9 (41-53) % MCV 88.3 (80-100) fL MCH 30.2 (26-34) PG MCHC 34.2 (30-36) % RDW 14.2 (11.6-14.8) % Plt Count 279 (150-400) X10^3/uL Neut % (Auto) 65.0 (50-75) % Lymph % (Auto) 20.1 L (25-40) % Wirt % (Auto) 12.3 (3-14) % Eos % (Auto) 1.6 L (2-4) % Baso % (Auto) 1.0 (0-2) % Neut # (Auto) 6800 (4855-4100) /uL Lymph # (Auto) 2100 (7025-6319) /uL Wirt # (Auto) 1300 H (0-900) /uL Eos # (Auto) 200 (0-450) /uL Baso # (Auto) 100 (0-100) /uL D-Dimer 444 (<500) ng/ml Sodium (137-145) mmol/L Potassium (3.4-5.1) mmol/L Chloride (98-107) mmol/L Carbon Dioxide (22-32) mmol/L BUN (9-20) mg/dL Creatinine (0.66-1.25) mg/dL Estimated GFR (>60) mL/min BUN/Creatinine Ratio (6-22) Glucose (80-110) mg/dL Calcium (8.4-10.2) mg/dL Magnesium (1.6-2.3) mg/dL Total Bilirubin (0.2-1.3) mg/dL AST (17-59) IU/L ALT (<50) IU/L Alkaline Phosphatase (38-126) U/L Total Creatine Kinase (55-170) U/L Troponin I (0.01-0.034) ng/mL NT-Pro-B Natriuret Pep (<125) pg/mL Total Protein (6.3-8.2) g/dL Albumin (3.5-5.0) g/dL Globulin (1.7-4.1) g/dL Albumin/Globulin Ratio (1.0-2.8) Triglycerides (35-150) mg/dL Cholesterol (140-199) mg/dL LDL Cholesterol, Calc (<100) mg/dL HDL Cholesterol (40-60) mg/dL Lipase (23-300) U/L Procalcitonin 0.07 (<0.5) ng/mL TSH (0.47-4.68) uIU/mL 02/28/23 02/28/23 02/28/23 Range/Units 00:18 00:18 00:18 WBC (4.5-11.0) X10^3/uL RBC (4.5-5.9) X10^6/uL Hgb (13.5-17.5) g/dL Hct (41-53) % MCV (80-100) fL MCH (26-34) PG MCHC (30-36) % RDW (11.6-14.8) % Plt Count (150-400) X10^3/uL Neut % (Auto) (50-75) % Lymph % (Auto) (25-40) % Wirt % (Auto) (3-14) % Eos % (Auto) (2-4) % Baso % (Auto) (0-2) % Neut # (Auto) (1634-6209) /uL Lymph # (Auto) (0039-8934) /uL Wirt # (Auto) (0-900) /uL Eos # (Auto) (0-450) /uL Baso # (Auto) (0-100) /uL D-Dimer (<500) ng/ml Sodium 131 L (137-145) mmol/L Potassium 4.7 (3.4-5.1) mmol/L Chloride 96 L (98-107) mmol/L Carbon Dioxide 26 (22-32) mmol/L BUN 23 H (9-20) mg/dL Creatinine 0.70 (0.66-1.25) mg/dL Estimated GFR > 60 (>60) mL/min BUN/Creatinine Ratio 32.9 H (6-22) Glucose 99 (80-110) mg/dL Calcium 8.9 (8.4-10.2) mg/dL Magnesium 2.2 (1.6-2.3) mg/dL Total Bilirubin 0.8 (0.2-1.3) mg/dL AST 26 (17-59) IU/L ALT 21 (<50) IU/L Alkaline Phosphatase 82 (38-126) U/L Total Creatine Kinase 81 (55-170) U/L Troponin I < 0.012 (0.01-0.034) ng/mL NT-Pro-B Natriuret Pep 575 H (<125) pg/mL Total Protein 7.3 (6.3-8.2) g/dL Albumin 4.4 (3.5-5.0) g/dL Globulin 2.9 (1.7-4.1) g/dL Albumin/Globulin Ratio 1.5 (1.0-2.8) Triglycerides (35-150) mg/dL Cholesterol (140-199) mg/dL LDL Cholesterol, Calc (<100) mg/dL HDL Cholesterol (40-60) mg/dL Lipase 149 (23-300) U/L Procalcitonin (<0.5) ng/mL TSH 3.16 (0.47-4.68) uIU/mL 02/28/23 02/28/23 02/28/23 Range/Units 03:18 07:35 07:35 WBC (4.5-11.0) X10^3/uL RBC (4.5-5.9) X10^6/uL Hgb (13.5-17.5) g/dL Hct (41-53) % MCV (80-100) fL MCH (26-34) PG MCHC (30-36) % RDW (11.6-14.8) % Plt Count (150-400) X10^3/uL Neut % (Auto) (50-75) % Lymph % (Auto) (25-40) % Wirt % (Auto) (3-14) % Eos % (Auto) (2-4) % Baso % (Auto) (0-2) % Neut # (Auto) (5789-5603) /uL Lymph # (Auto) (5823-3714) /uL Wirt # (Auto) (0-900) /uL Eos # (Auto) (0-450) /uL Baso # (Auto) (0-100) /uL D-Dimer (<500) ng/ml Sodium (137-145) mmol/L Potassium (3.4-5.1) mmol/L Chloride (98-107) mmol/L Carbon Dioxide (22-32) mmol/L BUN (9-20) mg/dL Creatinine (0.66-1.25) mg/dL Estimated GFR (>60) mL/min BUN/Creatinine Ratio (6-22) Glucose (80-110) mg/dL Calcium (8.4-10.2) mg/dL Magnesium (1.6-2.3) mg/dL Total Bilirubin (0.2-1.3) mg/dL AST (17-59) IU/L ALT (<50) IU/L Alkaline Phosphatase (38-126) U/L Total Creatine Kinase 96 (55-170) U/L Troponin I 0.023 < 0.012 (0.01-0.034) ng/mL NT-Pro-B Natriuret Pep (<125) pg/mL Total Protein (6.3-8.2) g/dL Albumin (3.5-5.0) g/dL Globulin (1.7-4.1) g/dL Albumin/Globulin Ratio (1.0-2.8) Triglycerides 61 (35-150) mg/dL Cholesterol 217 H (140-199) mg/dL LDL Cholesterol, Calc 118 H (<100) mg/dL HDL Cholesterol 87 H (40-60) mg/dL Lipase (23-300) U/L Procalcitonin (<0.5) ng/mL TSH (0.47-4.68) uIU/mL [facility] Narrative Medical decision making narrative: [68] year old patient presents with chest pain Multiple etiologies for patient's symptoms considered including, but not limited to: [cardiac ischemia vs. CHF vs. pneumonia vs. PE vs. other] Prior Charts reviewed in our EMR Primary Historian: patient Labs reviewed and interpreted by myself: No leukocytosis, no anemia. Electrolytes, renal function, troponin x2 negative. D Dimer below age corrected cutoff Imaging reviewed: CXR and Chest CT without acute findings Patient's symptoms improved over duration of stay with above-stated therapies. Patient had complete resolution of pressure after 3 nitro. His work of breathing is greatly improved, at no point is he hypoxemic or a need of supplemental oxygen. No exertional symptoms, non-ischemic EKG. No signs of pneumonia. PE considered, but thought unlikely given negative Dimer. No i ndication to perform CTA. Dr. Vincent-patient seen and evaluated by myself. Reports noncompliance with atrial fibrillation medication he is currently rate controlled with heart rate in the 90s. Describes heaviness and pressure in the center of his chest that is nonradiating not with exertion resolved with nitroglycerin. He has 3- troponins and a negative workup including CT chest. Stress test was ordered it was questionable if we had supplies for it it appears that we do he has a stress te st to be done this morning. Spoke with Dr. Swartz who reports probably low risk stress test is indicated along with echo no need for transfer at this time. Recommends anticoagulation and metoprolol at discharge Dr. Joseph hospitalists updated patient's symptoms test results and kindly accepts patient Discharge Plan Departure Patient Disposition: Admitted as Observation Clinical Impression: Chest pain, Acute dyspnea Admit Date/Time: 02/28/23 08:41 Admit Provider: Jarod Joseph
[2023-02-28 00:30] LABS: Add Manual Diff / Slide Review NO; Basophils Absolute Auto 100 /uL (0-100); Eosinophils Absolute Auto 200 /uL (0-450); Eosinophils Percent Auto 1.6 % (2-4); Hematocrit 45.9 % (41-53); Hemoglobin 15.7 g/dL (13.5-17.5); Lymphocytes Absolute Auto 2100 /uL (1100-4500); Lymphocytes Percent Auto 20.1 % (25-40); Mean Corpuscular HGB Conc 34.2 % (30-36); Mean Corpuscular Hemoglobin 30.2 PG (26-34); Mean Corpuscular Volume 88.3 fL (80-100); Monocytes Absolute Auto 1300 /uL (0-900); Monocytes Percent Auto 12.3 % (3-14); Neutrophils Absolute Auto 6800 /uL (1500-7000); Platelet Count 279 X10^3/uL (150-400); Red Blood Cell Count 5.21 X10^6/uL (4.5-5.9); Red Cell Distribution Width 14.2 % (11.6-14.8); White Blood Cell Count 10.5 X10^3/uL (4.5-11.0)
[2023-02-28 00:40] LABS: Alanine Aminotransferase 21 IU/L (<50); Albumin 4.4 g/dL (3.5-5.0); Albumin Globulin Ratio 1.5 (1.0-2.8); Alkaline Phosphatase 82 U/L (38-126); Aspartate Aminotransferase 26 IU/L (17-59); BUN Creatinine Ratio 32.9 (6-22); Bilirubin Total 0.8 mg/dL (0.2-1.3); Blood Urea Nitrogen 23 mg/dL (9-20); Calcium 8.9 mg/dL (8.4-10.2); Carbon Dioxide 26 mmol/L (22-32); Chloride 96 mmol/L (98-107); Creatine Kinase 81 U/L (55-170); Estimated Glomerular Filt Rate > 60 mL/min (>60); Globulin 2.9 g/dL (1.7-4.1); Glucose 99 mg/dL (80-110); HEMOLYSIS < 15 (0-50); Lipase 149 U/L (23-300); Magnesium 2.2 mg/dL (1.6-2.3); Potassium 4.7 mmol/L (3.4-5.1); Sodium 131 mmol/L (137-145); Total Protein 7.3 g/dL (6.3-8.2)
[2023-02-28 00:52] LABS: NT-proBNP (BNP-Adult 18+) 575 pg/mL (<125); Troponin I < 0.012 ng/mL (0.01-0.034)
[2023-02-28 00:55] LABS: D Dimer 444 ng/ml (<500)
[2023-02-28 00:57] LABS: Procalcitonin 0.07 ng/mL (<0.5)
--- NOTE | 2023-02-28 01:24 | DI.CT.S_ITS ---
PROCEDURE: CT CHEST WO CON INDICATIONS: chest pain, SOB, cough TECHNIQUE: Noncontrast 5 mm thick sections acquired from the pulmonary apices to the posterior costophrenic angles. 1 mm lung window, 5 mm thick coronal and sagittal and 7 mm axial MIP reformats were then acquired. For radiation dose reduction, the following was used: automated exposure control, adjustment of mA and/or kV according to patient size. COMPARISON: [facility], CR, XR CHEST 1V, 02/28/2023, 0:14. FINDINGS: Image quality: Excellent. Lungs and pleura: No acute air space opacities. No pleural effusions or pneumothorax. Central and peripheral airways are patent and normal in caliber. Mediastinum: Heart size is normal. No pericardial effusion. No mediastinal adenopathy by size criteria. Thoracic aorta and central pulmonary arteries are normal in size. Esophagus is normal in caliber. Minimal hiatal hernia. Bones and chest wall: No suspicious bony lesions. No vertebral body compression fractures. No axillary or supraclavicular adenopathy by size criteria. Thyroid gland is unremarkable . Abdomen: Visualized upper abdominal solid organs and bowel loops appear normal in the absence of contrast. IMPRESSION: Lungs are clear. Dictated by: Hali Joseph M.D. on 02/28/2023 at 1:56 Approved by: Hali Joseph M.D. on 02/28/2023 at 1:58
[2023-02-28] MEDS: NITROGLYCERIN 0.4 MG SL TAB SL ×2 (01:30→01:37)
[2023-02-28] MEDS: FUROSEMIDE 40 MG/4 ML VIAL IV (01:31)
--- NOTE | 2023-02-28 02:18 | PC.NURSE ---
Pt recieved nitro x2 with no relief from chest pressure. Noted BP decrease. Provider made aware, hold on nitro x3. Repeat trop 0318.
--- NOTE | 2023-02-28 02:50 | PC.NURSE ---
Pt is now chest pain/pressure free. Feels back to his baseline. Able to walk and stand to use urinal at baseline. Denies shortness of breath. Provider made aware. Hold on nitro paste and toradol at this time. Awaiting repeat trop.
[2023-02-28 03:35] LABS: Creatine Kinase 96 U/L (55-170)
[2023-02-28 03:48] LABS: Troponin I 0.023 ng/mL (0.01-0.034)
[2023-02-28] MEDS: METOPROLOL IR 25 MG TABLET PO (04:11)
[2023-02-28 08:15] LABS: Troponin I < 0.012 ng/mL (0.01-0.034)
--- NOTE | 2023-02-28 08:50 | PM.HP.1 ---
History of Present Illness History of Present Illness Chief complaint: Afib Narrative: Reynaldo Perla is a 68yo M with PMH of A-fib on xarelto, chronic pain, chronic smoker, HTN, HLD, and arthritis who presents with chest pain. Patient reports 2 days of pressure-like chest pain and SOB. Relieved with nitro in the ED. He reports non-compliance with his cardiac meds. Chest pain is now fully resolved. Patient seen after his nuclear stress test and he says he had no pain during the study. He is eager to get out of the hospital. [facility] Medical History Arthritis Atrial fibrillation Atrial fibrillation Bowel obstruction Cervical myelopathy Chronic left hip pain Chronic pain DDD (degenerative disc disease), lumbar Degenerative joint disease (DJD) of hip Encounter for tobacco use cessation counseling Encounter for tobacco use cessation counseling Fecal incontinence (~2019) Gait instability Hernia, inguinal, left Herniated nucleus pulposus, L2-3 Herniated nucleus pulposus, L4-5 Herniated nucleus pulposus, L5-S1 HTN (hypertension) Hyperlipidemia Hyponatremia Left leg weakness Lumbar radiculopathy Measles (Unknown) Pain in left thigh Pain in right thigh Resolved chickenpox (Unknown) Tobacco use disorder Trochanteric bursitis of both hips Urinary frequency Weakness of both lower extremities Surgical History History of left inguinal hernia repair Status post cervical discectomy Status post cervical spinal fusion Family History Father Diabetes mellitus Hypertension Mother Depression Sister Hypertension Grandmother No problems noted. Grandfather No problems noted. Grandfather No problems noted. Grandmother No problems noted. Social History marital status: household members: spouse education level: high school occupational status: employed leisure activities: exercise seatbelt use: always helmet use: Yes water heater temp set < 120 deg: Yes working smoke detector in home: Yes fire extinguisher in home: Yes carbon monox detector in home: Yes firearms in home: Yes do you feel safe at home: Yes Smoking Status: Current every day smoker Tobacco: How many years used: 40 quit status: considering quitting alcohol intake: current substance use type: does not use during the past year weight has: increased > 10 lbs well-balanced diet: daily or most days daily servings fruits/ve-1 caffeine: Yes eating out: rarely or never Meds Home Medications and Allergies Home Medications Medication Instructions Recorded Confirmed Type multivitamin 1 cap PO DAILY 02/03/19 02/12/22 History Disabled Parking Permit See Rx Instructions .Route 07/16/21 02/12/22 Rx .COMPLEX #1 unit amlodipine 10 mg tablet 10 mg PO DAILY #90 tabs 07/16/21 02/12/22 Rx meloxicam 7.5 mg tablet 7.5 mg PO BID #180 tabs 12/26/21 02/12/22 Rx hydrocodone 5 mg-acetaminophen 325 1 tab PO Q8H PRN pain #14 tabs 01/15/22 02/12/22 Rx mg tablet potassium chloride 10 mEq 10 meq PO DAILY #30 caps 02/13/22 Rx capsule,extended release rivaroxaban 20 mg tablet 20 mg PO QPM #90 tabs 02/18/22 Rx gabapentin 300 mg capsule See Rx Instructions .Route 11/01/22 Rx .COMPLEX #1,080 caps Allergies Allergy/AdvReac Type Severity Reaction Status Date / Time No Known Drug Allergies Allergy Verified 02/28/23 00:27 Review of Systems Review of Systems Narrative: All other systems reviewed with the patient and are negative unless otherwise stated. Exam Vital Signs (past 8 hours): - 02/28/23 01:00 02/28/23 01:00 02/28/23 01:30 Pulse Rate 91 H 89 Respiratory Rate 23 Blood Pressure 151/104 H 162/109 H Pulse Oximetry 95 02/28/23 01:37 02/28/23 01:30 02/28/23 01:36 Pulse Rate 96 H 91 H 101 H Respiratory Rate 23 Blood Pressure 145/81 H Pulse Oximetry 94 93 02/28/23 01:36 02/28/23 02:00 02/28/23 02:08 Pulse Rate 94 H 92 H Respiratory Rate 18 19 Blood Pressure 145/81 H Pulse Oximetry 95 93 02/28/23 02:08 02/28/23 02:30 02/28/23 02:30 Pulse Rate 96 H Respiratory Rate 21 Blood Pressure 111/86 156/91 H Pulse Oximetry 93 02/28/23 03:00 02/28/23 03:00 02/28/23 03:30 Pulse Rate 93 H 96 H Respiratory Rate 18 20 Blood Pressure 133/96 H Pulse Oximetry 93 96 02/28/23 04:00 02/28/23 04:00 02/28/23 04:08 Pulse Rate 104 H 94 H Respiratory Rate 18 Blood Pressure 181/108 H Pulse Oximetry 96 94 02/28/23 04:08 02/28/23 04:30 02/28/23 04:30 Pulse Rate 94 H Respiratory Rate 21 Blood Pressure 181/92 H 160/110 H Pulse Oximetry 95 02/28/23 05:00 02/28/23 05:00 02/28/23 05:30 Pulse Rate 87 Respiratory Rate 18 Blood Pressure 137/72 136/92 H Pulse Oximetry 93 02/28/23 05:30 02/28/23 05:46 02/28/23 05:46 Pulse Rate 80 86 Respiratory Rate 19 21 Blood Pressure 123/84 Pulse Oximetry 94 95 02/28/23 06:00 02/28/23 06:00 02/28/23 06:30 Pulse Rate 83 85 Respiratory Rate 19 21 Blood Pressure 154/84 H Pulse Oximetry 93 95 02/28/23 06:31 02/28/23 06:31 02/28/23 07:00 Pulse Rate 88 Respiratory Rate 22 Blood Pressure 160/78 H 133/87 Pulse Oximetry 97 02/28/23 07:00 02/28/23 07:30 02/28/23 07:30 Pulse Rate 89 85 Respiratory Rate Blood Pressure 147/74 H Pulse Oximetry 94 94 02/28/23 08:00 Pulse Rate 90 Respiratory Rate 53 H Blood Pressure Pulse Oximetry 93 Oxygen Delivery Method Room Air Narrative Exam Narrative: GEN: no acute distress, appears older than stated age HEENT: moist mucous membranes, PERRL NECK: trachea midline, no JVD CV: regular rate and rhythm, no murmurs PULM: clear bilaterally ABD: soft, nontender, nondistended, no organomegaly EXT: warm and well perfused with no edema NEURO: awake, alert, oriented, no focal deficits Objective Labs 02/28/23 00:18 02/28/23 00:18 Labs: Laboratory Results - last 24 hr 02/28/23 02/28/23 02/28/23 00:18 00:18 00:18 WBC 10.5 RBC 5.21 Hgb 15.7 Hct 45.9 MCV 88.3 MCH 30.2 MCHC 34.2 RDW 14.2 Plt Count 279 Neut % (Auto) 65.0 Lymph % (Auto) 20.1 L [place] % (Auto) 12.3 Eos % (Auto) 1.6 L Baso % (Auto) 1.0 Neut # (Auto) 6800 Lymph # (Auto) 2100 [place] # (Auto) 1300 H Eos # (Auto) 200 Baso # (Auto) 100 D-Dimer 444 Sodium Potassium Chloride Carbon Dioxide BUN Creatinine Estimated GFR BUN/Creatinine Ratio Glucose Calcium Magnesium Total Bilirubin AST ALT Alkaline Phosphatase Total Creatine Kinase Troponin I NT-Pro-B Natriuret Pep Total Protein Albumin Globulin Albumin/Globulin Ratio Lipase Procalcitonin 0.07 02/28/23 02/28/23 02/28/23 00:18 00:18 03:18 WBC RBC Hgb Hct MCV MCH MCHC RDW Plt Count Neut % (Auto) Lymph % (Auto) [place] % (Auto) Eos % (Auto) Baso % (Auto) Neut # (Auto) Lymph # (Auto) [place] # (Auto) Eos # (Auto) Baso # (Auto) D-Dimer Sodium 131 L Potassium 4.7 Chloride 96 L Carbon Dioxide 26 BUN 23 H Creatinine 0.70 Estimated GFR > 60 BUN/Creatinine Ratio 32.9 H Glucose 99 Calcium 8.9 Magnesium 2.2 Total Bilirubin 0.8 AST 26 ALT 21 Alkaline Phosphatase 82 Total Creatine Kinase 81 96 Troponin I < 0.012 0.023 NT-Pro-B Natriuret Pep 575 H Total Protein 7.3 Albumin 4.4 Globulin 2.9 Albumin/Globulin Ratio 1.5 Lipase 149 Procalcitonin 02/28/23 07:35 WBC RBC Hgb Hct MCV MCH MCHC RDW Plt Count Neut % (Auto) Lymph % (Auto) [place] % (Auto) Eos % (Auto) Baso % (Auto) Neut # (Auto) Lymph # (Auto) [place] # (Auto) Eos # (Auto) Baso # (Auto) D-Dimer Sodium Potassium Chloride Carbon Dioxide BUN Creatinine Estimated GFR BUN/Creatinine Ratio Glucose Calcium Magnesium Total Bilirubin AST ALT Alkaline Phosphatase Total Creatine Kinase Troponin I < 0.012 NT-Pro-B Natriuret Pep Total Protein Albumin Globulin Albumin/Globulin Ratio Lipase Procalcitonin Assessment & Plan Assessment & Plan narrative: # chest pain -trops neg x3, EKG without ST changes -cards rec nuclear stress and echo -lasix 40 IV given in ED # atrial fibrillation -continue xarelto -rate controlled, although not on HR meds # chronic pain -on hydrocodone # hypertension -continue amlodipine # hyperlipidemia -not on statin Code status is full code. DVT prophylaxis with Lovenox. Proxy is Melanie spouse. I have reviewed home meds and used all available resources to reconcile the home meds. This patient will be admitted as observation and will require less than 2 midnights of hospital time to treat chest pain rule out.
[2023-02-28 09:29] LABS: Cholesterol 217 mg/dL (140-199); HDL Cholesterol 87 mg/dL (40-60); LDL Cholesterol Calculated 118 mg/dL (<100); Triglycerides 61 mg/dL (35-150)
[2023-02-28 10:00] LABS: TSH w/ Reflex to FT4 3.16 uIU/mL (0.47-4.68)
[2023-02-28] MEDS: AMLODIPINE 5 MG TABLET 10 MG PO (10:54)
[2023-02-28] MEDS: ASPIRIN EC 81 MG TABLET PO (10:54)
--- NOTE | 2023-02-28 13:14 | PC.NURSE ---
Day shift: Pt in room at approx 1300. BP elevated 160/100. Awaiting stress test results. Echo order also. He is A&Ox4. Denies any chest lizeth, pain at this time. Also denies any nausea. He does c/o of headache pain. He is requesting coffee. Will ask MD. Oriented to room and call light.
--- NOTE | 2023-02-28 14:54 | PC.NURSE ---
Day shift: Pt did not want any information on echocardiogram, stress test of chest pain upon admit to this unit. Has also said multiple times that he wants to go home. Dr Joseph aware. Awaiting echo planned for 1529 at this time.
--- NOTE | 2023-02-28 15:39 | PM.DS.1 ---
History of Present Illness History of Present Illness Date Patient Seen: 02/28/23 Time Patient Seen: 15:00 Chief complaint: Afib Narrative: Reynaldo Perla is a 68yo M with PMH of A-fib on xarelto, chronic pain, chronic smoker, HTN, HLD, and arthritis who presents with chest pain. Patient reports 2 days of pressure-like chest pain and SOB. Relieved with nitro in the ED. He reports non-compliance with his cardiac meds. Chest pain is now fully resolved. Patient seen after his nuclear stress test and he says he had no pain during the study. He is eager to get out of the hospital. Discharge Providers Provider Date of admission: 02/28/23 08:41 Discharge Date: 02/28/23 Primary care physician: JUANA Hidalgo Discharge provider: Jarod Joseph DO Summary Hospital Course Discharge Diagnosis: # chest pain -trops neg x3, ECG without ST changes -cards rec nuclear stress and echo -lasix 40 IV given in ED -stress test low risk and no evidence of ischemia -echo was delayed and patient elected to defer this and instead discharge because he was feeling well # atrial fibrillation -continue xarelto -rate controlled, although not on HR meds # chronic pain -on hydrocodone # hypertension -continue amlodipine # hyperlipidemia -not on statin -LDL 118 Hospital Course: Admitted for chest pain and SOB. EKG and troponins unremarkable. Underwent nuclear stress test which was reassuring. Patient did not want to wait for echo. He reported prior noncompliance with his cardiac meds, but says he will start taking them again. Time Spent with Patient Time spent: Greater than 30 minutes Exam Vital Signs (past 8 hours): - 02/28/23 08:00 02/28/23 14:12 Temperature 97.4 F L Pulse Rate 90 64 Respiratory Rate 53 H 22 Blood Pressure 161/100 H Pulse Oximetry 93 97 Oxygen Delivery Method Room Air Narrative Exam Narrative: GEN: no acute distress, appears older than stated age HEENT: moist mucous membranes, PERRL NECK: trachea midline, no JVD CV: regular rate and rhythm, no murmurs PULM: clear bilaterally ABD: soft, nontender, nondistended, no organomegaly EXT: warm and well perfused with no edema NEURO: awake, alert, oriented, no focal deficits Objective Labs 02/28/23 00:18 02/28/23 00:18 Labs: Laboratory Results - last 24 hr 02/28/23 02/28/23 02/28/23 00:18 00:18 00:18 WBC 10.5 RBC 5.21 Hgb 15.7 Hct 45.9 MCV 88.3 MCH 30.2 MCHC 34.2 RDW 14.2 Plt Count 279 Neut % (Auto) 65.0 Lymph % (Auto) 20.1 L [place] % (Auto) 12.3 Eos % (Auto) 1.6 L Baso % (Auto) 1.0 Neut # (Auto) 6800 Lymph # (Auto) 2100 [place] # (Auto) 1300 H Eos # (Auto) 200 Baso # (Auto) 100 D-Dimer 444 Sodium Potassium Chloride Carbon Dioxide BUN Creatinine Estimated GFR BUN/Creatinine Ratio Glucose Calcium Magnesium Total Bilirubin AST ALT Alkaline Phosphatase Total Creatine Kinase Troponin I NT-Pro-B Natriuret Pep Total Protein Albumin Globulin Albumin/Globulin Ratio Triglycerides Cholesterol LDL Cholesterol, Calc HDL Cholesterol Lipase Procalcitonin 0.07 TSH 02/28/23 02/28/23 02/28/23 00:18 00:18 00:18 WBC RBC Hgb Hct MCV MCH MCHC RDW Plt Count Neut % (Auto) Lymph % (Auto) [place] % (Auto) Eos % (Auto) Baso % (Auto) Neut # (Auto) Lymph # (Auto) [place] # (Auto) Eos # (Auto) Baso # (Auto) D-Dimer Sodium 131 L Potassium 4.7 Chloride 96 L Carbon Dioxide 26 BUN 23 H Creatinine 0.70 Estimated GFR > 60 BUN/Creatinine Ratio 32.9 H Glucose 99 Calcium 8.9 Magnesium 2.2 Total Bilirubin 0.8 AST 26 ALT 21 Alkaline Phosphatase 82 Total Creatine Kinase 81 Troponin I < 0.012 NT-Pro-B Natriuret Pep 575 H Total Protein 7.3 Albumin 4.4 Globulin 2.9 Albumin/Globulin Ratio 1.5 Triglycerides Cholesterol LDL Cholesterol, Calc HDL Cholesterol Lipase 149 Procalcitonin TSH 3.16 02/28/23 02/28/23 02/28/23 03:18 07:35 07:35 WBC RBC Hgb Hct MCV MCH MCHC RDW Plt Count Neut % (Auto) Lymph % (Auto) [place] % (Auto) Eos % (Auto) Baso % (Auto) Neut # (Auto) Lymph # (Auto) [place] # (Auto) Eos # (Auto) Baso # (Auto) D-Dimer Sodium Potassium Chloride Carbon Dioxide BUN Creatinine Estimated GFR BUN/Creatinine Ratio Glucose Calcium Magnesium Total Bilirubin AST ALT Alkaline Phosphatase Total Creatine Kinase 96 Troponin I 0.023 < 0.012 NT-Pro-B Natriuret Pep Total Protein Albumin Globulin Albumin/Globulin Ratio Triglycerides 61 Cholesterol 217 H LDL Cholesterol, Calc 118 H HDL Cholesterol 87 H Lipase Procalcitonin TSH PFSH Medical History Arthritis Atrial fibrillation Atrial fibrillation Bowel obstruction Cervical myelopathy Chronic left hip pain Chronic pain DDD (degenerative disc disease), lumbar Degenerative joint disease (DJD) of hip Encounter for tobacco use cessation counseling Encounter for tobacco use cessation counseling Fecal incontinence (~2019) Gait instability Hernia, inguinal, left Herniated nucleus pulposus, L2-3 Herniated nucleus pulposus, L4-5 Herniated nucleus pulposus, L5-S1 HTN (hypertension) Hyperlipidemia Hyponatremia Left leg weakness Lumbar radiculopathy Measles (Unknown) Pain in left thigh Pain in right thigh Resolved chickenpox (Unknown) Tobacco use disorder Trochanteric bursitis of both hips Urinary frequency Weakness of both lower extremities Surgical History History of left inguinal hernia repair Status post cervical discectomy Status post cervical spinal fusion Family History Father Diabetes mellitus Hypertension Mother Depression Sister Hypertension Grandmother No problems noted. Grandfather No problems noted. Grandfather No problems noted. Grandmother No problems noted. Social History marital status: household members: spouse education level: high school occupational status: employed leisure activities: exercise seatbelt use: always helmet use: Yes water heater temp set < 120 deg: Yes working smoke detector in home: Yes fire extinguisher in home: Yes carbon monox detector in home: Yes firearms in home: Yes do you feel safe at home: Yes Smoking Status: Current every day smoker Tobacco: How many years used: 40 quit status: considering quitting alcohol intake: current substance use type: does not use during the past year weight has: increased > 10 lbs well-balanced diet: daily or most days daily servings fruits/ve-1 caffeine: Yes eating out: rarely or never Discharge Plan Discharge Plan Patient Disposition: Home Provider Discharge Comment: You were admitted for chest pain. Your cardiac workup was negative. Please resume your home meds. Discharge orders & Medications Prescriptions: Continued meloxicam 7.5 mg tablet 7.5 mg PO BID Qty: 180 3RF potassium chloride 10 mEq capsule, extended release 10 meq PO DAILY Qty: 30 2RF Rx Instructions: Take 1 tab by mouth x30 days, check labs after rx finished. rivaroxaban 20 mg tablet 20 mg PO QPM Qty: 90 3RF Rx Instructions: must administer with evening meal gabapentin 300 mg capsule See Rx Instructions .ROUTE .COMPLEX Qty: 1080 3RF Dose Instruction: TAKE 4 CAPSULES BY MOUTH THREE TIMES DAILY Rx Instructions: TAKE 4 CAPSULES BY MOUTH THREE TIMES DAILY multivitamin capsule 1 cap PO DAILY Patient Comments: Patient has not taken in months Disabled Parking Permit See Rx Instructions .ROUTE .COMPLEX Qty: 1 0RF Rx Instructions: I find this patient to be medically disabled and qualify for disabled parking as indicated and signed on the accompanying disabled parking application for individuals. amlodipine 10 mg tablet 10 mg PO DAILY Qty: 90 3RF hydrocodone-acetaminophen 5-325 mg tablet 1 tab PO Q8H PRN (Reason: pain) Qty: 14 0RF Follow up/Referrals: Elise Antonio ARNP [Primary Care Provider] - 2 Weeks Visit Report/Discharge Packet Instructions: Echocardiogram, DI for Cardiac Stress Test, DI for Chest Pain Stand Alone Forms: Patient Portal/API, Stroke Signs & Symptoms Discharge Data Primary Care Provider: Elise Antonio Attending Provider: Jarod Joseph Admit Date/Time: 02/28/23 08:41 Discharges patient from system. Discharge Date/Time: 02/28/23 15:56 Quality VTE Deep Vein Thrombosis/Pulmonary Embolism Present on Admission: No
--- NOTE | 2023-02-28 15:54 | PC.NURSE ---
Day shift: Pt encouraged to f/u with PCP and to also have echocardiogram done as outpatient. Paperwork signed and all questions answered. Left unit via at approx 1555. [place] is giving him a ride to the [employer] Pt has all personal belongings.
--- NOTE | 2023-02-28 18:37 | DI.NM.S_ITS ---
DATE OF SERVICE: 02/28/2023 PROCEDURE PERFORMED: Pharmacologic vasodilator stress and rest myocardial perfusion imaging with gating to assess ejection fraction and regional wall motion. ORDERING PROVIDER: Jarod Joseph M.D. INDICATIONS: The patient is a 68-year-old male with persistent atrial fibrillation who presents to the ED with persistent chest discomfort but normal troponins. PHARMACOLOGIC STRESS: Per protocol, 0.4 mg of regadenoson was infused with a normal hemodynamic response. He had no chest discomfort or other anginal symptoms. His resting ECG shows atrial fibrillation with a controlled ventricular response and an LBBB with associated ST-segment abnormalities that become slightly accentuated with stress but remain nonspecific. He had no other arrhythmias except atrial fibrillation. Per protocol, 26.8 millicuries of technetium-99m Myoview was injected and he was imaged 20 minutes later using a gated SPECT acquisition protocol. Earlier in the day while at rest, he had been injected with 11.9 millicuries of technetium-99m Myoview and was imaged 20 minutes later, again using a quantitated gated stress protocol. FINDINGS: 1. Raw data: There is fair myocardial tracer uptake with some evidence for diaphragmatic attenuation. Lung-heart ratio is mildly elevated at 0.43, which can be a sign of pulmonary congestion but the TID ratio is normal at 1.06. 2. Quantitated gated SPECT: Post-stress ejection fraction is estimated at 56% without focal wall motion abnormalities. Resting ejection fraction is also 56% with a mildly increased resting end-diastolic volume of 140 mL. 3. Myocardial perfusion imaging: Post-stress supine images show a fairly normal perfusion pattern except for mildly reduced tracer activity in the mid and distal inferior wall and septum in a pattern consistent with diaphragmatic attenuation, supported by its complete resolution on the prone images which reveal a normal, homogeneous perfusion pattern. The resting images show a similar perfusion pattern to that of the post-stress supine images with a slightly more profound inferior defect, but no areas of improvement. IMPRESSION: 1. Probable normal myocardial perfusion study for ischemia. 2. Mild to moderate fixed inferior and inferoseptal perfusion defect that resolves on prone imaging, most consistent with diaphragmatic attenuation artifact, particularly given the absence of any wall motion abnormality. There is no evidence for any significant myocardial ischemia. 3. Mild left ventricular enlargement with low normal left ventricular systolic function without any focal wall motion abnormality. An elevated lung/heart ratio can be an indication of pulmonary congestion but clinical correlation is needed. 4. No angina or significant ECG evidence of ischemia with pharmacologic vasodilator stress. He remained in atrial fibrillation with a controlled ventricular response throughout the study. CayutaPal dhillon - SAMIA/meron/manan doc#: [id number]/job#: [id number] dd: 02/28/2023 12:56:00 dt: 02/28/2023 18:17:00 DICTATING MD/COPIES TO: Tristan Swartz MD; Jarod Joseph M.D. COPIES MNE: J CARLOS;
[2023-03-01 08:29] LABS: x Labcorp Estim. Avg Glu (eAG) 120 mg/dL (.); x Labcorp Hemoglobin A1c 5.8 % (4.8-5.6)
== END 2023-02-28 15:56 | disposition home or self-care (01) ==
LOC: ED 07:05 → AC 08:42 → ICU 11:07 → AC 13:27
PROVIDERS: Emergency Medicine; Admitting Provider Student in an Organized Health Care Education/Training Program; Emergency Provider Emergency Medicine; PCP Nurse Practitioner; Referring Provider Emergency Medicine; Visit Provider Student in an Organized Health Care Education/Training Program
DX: R07.9 Chest pain, unspecified (principal); I10 Essential (primary) hypertension; E78.5 Hyperlipidemia, unspecified; I48.19 Other persistent atrial fibrillation; R06.02 Shortness of breath; Z91.148 Patient's other noncompliance with medication regimen for other reason; F17.210 Nicotine dependence, cigarettes, uncomplicated; G89.29 Other chronic pain
CPT/HCPCS: 36415; 71045; 71250; 78452; 80053; 80061; 81003; 82550; 83036; 83690; 83735; 83880; 84145; 84443; 84484; 85025; 85379; 93005; 93010; 93017; 96374; 99285; G0378; A9502; J1940; J2785

== ENCOUNTER → 2023-09-04 10:37 | Outpatient (CLI) | payer OTHER, SELFPAY ==
[2023-03-03 13:45] VITALS: BMI 25.8
[2023-09-04 11:59] LABS: Hematocrit 47.7 % (41-53); Mean Corpuscular HGB Conc 33.5 % (30-36); Mean Corpuscular Hemoglobin 30.4 PG (26-34); Mean Corpuscular Volume 90.8 fL (80-100); Platelet Count 358 X10^3/uL (150-400); Red Blood Cell Count 5.25 X10^6/uL (4.5-5.9); Red Cell Distribution Width 13.7 % (11.6-14.8); White Blood Cell Count 12.8 X10^3/uL (4.5-11.0)
[2023-09-04 12:16] LABS: Alanine Aminotransferase 25 IU/L (<50); Albumin 4.7 g/dL (3.5-5.0); Albumin Globulin Ratio 1.5 (1.0-2.8); Alkaline Phosphatase 85 U/L (38-126); BUN Creatinine Ratio 20.9 (6-22); Bilirubin Total 0.7 mg/dL (0.2-1.3); Blood Urea Nitrogen 14 mg/dL (9-20); Calcium 9.7 mg/dL (8.4-10.2); Carbon Dioxide 27 mmol/L (22-32); Chloride 93 mmol/L (98-107); Cholesterol 165 mg/dL (140-199); Estimated Glomerular Filt Rate > 60 mL/min (>60); Globulin 3.1 g/dL (1.7-4.1); Glucose 89 mg/dL (80-110); HDL Cholesterol 67 mg/dL (40-60); HEMOLYSIS < 15 (0-50); LDL Cholesterol Calculated 78 mg/dL (<100); Potassium 4.8 mmol/L (3.4-5.1); Sodium 131 mmol/L (137-145); Total Protein 7.8 g/dL (6.3-8.2); Triglycerides 100 mg/dL (35-150)
[2023-09-05 15:10] LABS: Aspartate Aminotransferase 31 IU/L (17-59)
== END ==
PROVIDERS: PCP Nurse Practitioner; Referring Provider Nurse Practitioner; Visit Provider Nurse Practitioner
DX: I48.91 Unspecified atrial fibrillation (principal); I10 Essential (primary) hypertension; E78.5 Hyperlipidemia, unspecified; Z79.01 Long term (current) use of anticoagulants; Z79.899 Other long term (current) drug therapy
CPT/HCPCS: 36415; 80053; 80061; 85027

== ENCOUNTER → 2024-08-03 11:23 | Outpatient (CLI) | payer MEDICARE, SELFPAY ==
[2023-03-03 13:45] VITALS: BMI 25.8
--- NOTE | 2024-08-03 11:23 | DI.CT.S_ITS ---
PROCEDURE: CT LUNG LOW DOSE SCREENING INDICATIONS: smoker, no previous screening done for lung cancer TECHNIQUE: Noncontrast 2.0-2.5 mm thick sections acquired from the pulmonary apices to the posterior costophrenic angles. 7 mm thick axial MIP, and 5 mm coronal and sagittal reformats were then acquired. For radiation dose reduction, the following was used: automated exposure control, adjustment of mA and/or kV according to patient size. COMPARISON: [facility], CT, CT CHEST WO [facility], 02/28/2023, 1:32. FINDINGS: Image quality: Diagnostic. Lower Neck: No enlarged lymph nodes. Thyroid: Left thyroid lobe calcifications are noted. The right thyroid lobe is unremarkable. Axillae: No enlarged lymph nodes. Chest Wall: Unremarkable. Bones: Unremarkable. Lungs and Pleura: No pneumothorax or pleural effusions. No consolidation or suspicious nodules. Heart: Heart size is normal. No pericardial effusion. Coronary artery calcifications are noted within 3 vessels. Thoracic Vessels: The aorta and pulmonary arteries demonstrate normal size. Mediastinum and Dhara: No enlarged lymph nodes. Esophagus: No wall thickening. No hiatal hernia. Upper Abdomen: Visualized upper abdomen solid organs and bowel loops appear normal. IMPRESSION: No suspicious pulmonary nodules. LUNG-RADS 1; continued annual screening, if eligible. Clinically Significant Non-pulmonary Findings: Coronary artery calcification. Dictated by: Adrianna Salinas M.D. on 08/03/2024 at 12:56 Approved by: Adrianna Salinas M.D. on 08/10/2024 at 10:18
== END ==
PROVIDERS: PCP Family Medicine; Referring Provider Family Medicine; Visit Provider Family Medicine
DX: F17.210 Nicotine dependence, cigarettes, uncomplicated; Z12.2 Encounter for screening for malignant neoplasm of respiratory organs; I25.10 Atherosclerotic heart disease of native coronary artery without angina pectoris
CPT/HCPCS: 71271